=== PATIENT | male | born 1935 | race Caucasian/White ===

== ENCOUNTER 2020-04-27 18:22 | Inpatient (IN) | payer MEDICARE, MEDICAID, SELFPAY ==
[2020-04-27] VITALS (10 sets, daily range): BP systolic 109–138; BP diastolic 60–88; PULSE 99–113; RESP 18–27; TEMP 37.7; O2SAT 100–102; BMI 38.0
--- NOTE | 2020-04-27 18:49 | CTR_ITS ---
PROCEDURE INFORMATION: Exam: CT Head Without Contrast Exam date and time: 04/27/2020 7:31 PM Age: 84 years old Clinical indication: Altered mental status/memory loss; Confusion or disorientation; Patient HX: Weakness and confusion; Additional info: AMS TECHNIQUE: Imaging protocol: Computed tomography of the head without contrast. Radiation optimization: All CT scans at this facility use at least one of these dose optimization techniques: automated exposure control; mA and/or kV adjustment per patient size (includes targeted exams where dose is matched to clinical indication); or iterative reconstruction. COMPARISON: CT head wo con* [id number] 05/04/2019 1:50 PM RADIATION DOSE METRICS: Total DLP (mGy-cm): 728.13 FINDINGS: Brain: Moderate diffuse white matter disease likely reflecting chronic microvascular ischemic changes. Bilateral punctate benign basal ganglia calcifications. Cerebral ventricles: No ventriculomegaly. Bones/joints: Unremarkable. No acute fracture. Paranasal sinuses: Paranasal sinus opacifications. Mastoid air cells: Visualized mastoid air cells are well aerated. Soft tissues: Unremarkable. CT/CT head wo con* [id number] IMPRESSION: Negative for intracranial hemorrhage or mass effect. Radiation Dose CTDIVOL = (mGy): DLP = 728.13 (mGy-cm)
--- NOTE | 2020-04-27 18:49 | XR_ITS ---
WS: [id number] XR chest 1V portable [id number] REASON FOR EXAM: sob FINDINGS: Moderately tortuous thoracic aorta. Normal heart size. Calcified granulomatous changes in both hemithoraces. No active pulmonary parenchymal or pleural dise ase is noted. Mild degenerative spondylosis in the mid and lower thoracic spine. XR/XR chest 1V portable [id number] IMPRESSION: No acute chest abnormality.
--- NOTE | 2020-04-27 18:51 | ECG_ITS ---
[facility] Test Date: 2020-04-27 Pat Name: Geoffrey Blakely Department: Room: Gender: Male Testing Tech: : 1935 Requested By: Lorenzo Max Order Number: [id number] Michelle MD: CECILIA ARCEO Measurements Intervals [place] Rate: 109 P: 0 GA: 220 QRS: 83 QRSD: 114 T: 12 QT: 300 QTc: 405 Interpretive Statements SINUS TACHYCARDIA WITH FIRST DEGREE AV BLOCK RIGHT BUNDLE BRANCH BLOCK [120+ ms QRS DURATION, UPRIGHT V1, 40+ ms S IN I/aVL/V4/V5/V6] No previous ECG available for comparison Electronically Signed On 04-28-2020 18:39:50 DIRECTOR INDEPENDENT by CECILIA ARCEO [id number]
[2020-04-27] MEDS: sodium chloride 0.9% 1,000 ML 999 ML IV (19:23)
[2020-04-27] MEDS: albuterol 8 gm MDI 4 PUFF INHALATION (19:58)
[2020-04-27 20:06] LABS: Basophils % 0.3 %; Eosinophils % 0.3 %; Hematocrit 42.6 % (42.0-52.0); Hemoglobin 13.9 g/dL (11.7-16.6); Lymphocytes # 2.1 10^3/uL (0.8-4.8); Lymphocytes % 18.2 %; Mean Corpuscular HGB Conc 32.6 g/dL (30.0-36.0); Mean Corpuscular Hemoglobin 30.5 pg (28.0-34.0); Mean Corpuscular Volume 93.6 fL (80-94); Mean Platelet Volume 11.6 fL (7.4-10.4); Monocytes # 1.2 10^3/uL (0.2-0.9); Monocytes % 10.4 %; Neutrophils # 8.15 10^3/uL (1.8-7.7); Neutrophils % 70.3 %; Nucleated Red Blood Cells % 0 %; Platelet Count 239 10^3/cmm (130-400); Red Blood Count 4.55 10^6/uL (4.1-5.3); Red Cell Distribution Width 12.3 % (12.1-15.1); White Blood Count 11.6 10^3/uL (4.0-10.0)
[2020-04-27 20:09] LABS: ABG PCO2 39.6 mmHg (35-45); ABG PH Result 7.44 (7.35-7.45); Arterial Blood Gas Hematocrit 41.3 % (42-52); Base Excess ABG 2.4 mmol/L (-2.0-2.0); Blood Gas Allen Test Pos; Blood Gas Sample Site Radial, right; Blood Gas Sample Type Arterial; Carboxyhemoglobin 0.8 %THgb (0.4-20.1); HCO3 ABG 26.7 mmol/L (22-26); Methemoglobin 0.8 % (0.4-1.5); Oxygen Device NC; PO2 ABG 85.1 mmHg (80.0-100.0); Total Hemoglobin 13.5 g/dL (14-18)
[2020-04-27 20:16] LABS: Lactic Sepsis W/Reflex 2.5 mmol/L (0.5-2.2)
[2020-04-27 20:31] LABS: Alanine Aminotransferase 29 U/L (0-41); Albumin Level 3.2 g/dL (3.5-5.2); Alkaline Phosphatase 49 IU/L (40-130); Anion Gap 18.8 (5-19); Aspartate Amino Transferase 85 U/L (0-40); Blood Urea Nitrogen 64 mg/dL (8-23); C Reactive Protein 190.4 mg/L (0.0-4.9); Calcium 8.1 mg/dL (8.5-10.5); Carbon Dioxide 29 mmol/L (22-29); Chloride 101 mmol/L (98-107); Globulin 3.9 g/dL (1.3-4.6); Glucose 158 mg/dL (65-115); NT Pro B Type Natriuretic Pept 814 pg/mL (0-450); Osmolality Calculated 320 mOsm/kg (285-295); Potassium 4.8 mmol/L (3.5-5.1); Sodium 144 mmol/L (136-145); Total Bilirubin 0.3 mg/dL (0.15-1.2); Total Protein 7.1 g/dL (6.6-8.7)
--- NOTE | 2020-04-27 20:51 | ECG_ITS ---
[facility] Test Date: 2020-04-27 Pat Name: Geoffrey Blakely Department: Room: Gender: Male Gravity Prospecting Supervisor: : 1935 Requested By: Lorenzo Max Order Number: [id number] Michelle MD: Isatu Galo M.D. Measurements Intervals [place] Rate: 109 P: -6 ID: [id number] QRS: 111 QRSD: 130 T: 23 QT: 351 QTc: 474 Interpretive Statements SINUS TACHYCARDIA WITH OCCASIONAL VENTRICULAR PREMATURE COMPLEXES RIGHT AXIS DEVIATION [QRS AXIS > 100] RIGHT BUNDLE BRANCH BLOCK [120+ ms QRS DURATION, UPRIGHT V1, 40+ ms S IN I/aVL/V4/V5/V6] Compared to ECG 04/27/2020 19:10:48 Ventricular premature complex(es) now present Right-axis deviation now present First degree AV block no longer present Electronically Signed On 04-30-2020 6:51:19 DINING SERVER by Isatu Galo M.D. [id number]
[2020-04-27 20:59] LABS: Glucose Urine UA Norm (Normal); Ketones Urine Negative (Negative); Protein Urine Trace (Negative); Specific Gravity, Urine 1.025 (1.005-1.030); Urine Appearance Hazy (CLEAR); Urine Color Yellow (Yellow); pH Urine 5 (5-7)
[2020-04-27 21:00] LABS: Add Urine Microscopic? YES; Bilirubin Urine Neg (Negative); Blood Urine Neg (Negative); Leukocyte Esterase Urine Negative (Negative); Nitrate Urine Negative (Negative); Urobilinogen Urine Norm (Negative)
[2020-04-27 21:05] LABS: Lactate Dehydrogenase 338 U/L (135-225)
[2020-04-27 21:09] LABS: SARS Covid-2 Antigen Positive (Negative)
[2020-04-27 21:09] LABS: Influenza A by IFA Negative (Negative); Influenza B by IFA Negative (Negative)
--- NOTE | 2020-04-27 21:16 | PC.NURSE ---
Amy handed directly to Molly from lab outside of pt room at 21:12
[2020-04-27 21:47] LABS: Bacteria Urine 1+ /hpf; Hyaline Casts Urine 25-40 /lpf; Mucus Urine 1+ /hpf; RBC Urine 0-4 /hpf (0-2); Squamous Epithelial Cell Urine 0-4 /hpf (0-5)
[2020-04-27 21:51] LABS: Reflex Lactate Order REFLEX LACTIC ORDERD
[2020-04-27 21:57] LABS: Troponin 5 2HR 59.32 ng/L (0-15)
[2020-04-27 22:12] LABS: Troponin(5th) Baseline 63 ng/L (0-15)
[2020-04-27 22:33] LABS: Troponin 5 2HR Delta -3.68 ABS# (0-10)
[2020-04-27] MEDS: acetaminophen 500 mg Tablet 1000 MG PO (22:44)
[2020-04-27 22:57] LABS: Lactic Acid level (Lactate) 1.6 mmol/L (0.5-2.2)
[2020-04-28] VITALS (84 sets, daily range): BP systolic 72–152; BP diastolic 40–88; PULSE 61–108; RESP 14–33; TEMP 36.2–37.8; O2SAT 87–99; BMI 31.9
--- NOTE | 2020-04-28 00:08 | P.HP_ITS ---
Providers/Chief Complaint Admitting Physician: Eriberto Aleman MD Primary Care Provider: ARMAAN Lam Chief Complaint: WEAKNESS; COUGH History of Present Illness Geoffrey Blakely is a 84 year old male with past medical history of hypertension, heart failure, was brought from home by the EMS with chief complaint of acute encephalopathy.History taking has been difficult as the patient is very hard of hearing.Patient is not able to communicate in an appropriate manner. We will h ave to reach out to the family in the morning to gather some more collateral information well as the baseline mentation of the patient. Upon arrival in the ER he was worked up for acute encephalopathy. CT head without contrast: No acute intracranial pathology X-ray chest: No infiltrate, or cardiomegaly, no pleural effusion. No pneumothorax ABG: pH 7.44, PCO2: 39, PO2: 85, on 2 L WBC: 69898, H&H:12.2/37, BUN/creatinine: 64/3 , lactic acid: 1.6, procalcitonin: 1.63 troponin: 63, 2-hour troponin: 59, delta: -3.68, 6-hour troponin: 47, delta 6- hour: -15.3 proBNP: 730, urinalysis: Clean Rapid Covid: Positive , influenza: Negative ECA course: Patient received 1 dose of remdesivir, 1 dose of Solu-Medrol 125 , he was started on dexamethasone 6 mg IV every 24 hours daily. Received 1 dose of Lovenox 110MG subacute . Upon arrival to the floor: Patient has become hypotensive: and was started on Levophed. Review of Systems Narrative: Could not be obtained. Medications/Allergies Home Medications Medication Instructions Recorded Confirmed Last Taken Type atorvastatin 10 mg PO BEDTIME 04/28/20 04/28/20 Unknown History cholecalciferol (vitamin D3) 50,000 unit PO DIRECTED 04/28/20 04/28/20 Unknown History lisinopril 20 mg PO DAILY 04/28/20 04/28/20 Unknown History primidone 50 mg PO BEDTIME 04/28/20 04/28/20 Unknown History torsemide 10 mg PO BID 04/28/20 04/28/20 Unknown History Allergies Allergy/AdvReac Type Severity Reaction Status Date / Time No Known Drug Allergies Allergy Unknown Verified 04/28/20 00:58 Vitals/I&O/Wt Last Vital Signs Temp 99.9 F H 04/27/20 22:00 Pulse 100 04/27/20 22:00 Resp 18 04/27/20 22:00 BP 119/63 04/27/20 22:00 Pulse Ox 100 04/27/20 22:00 04/27/20 04/27/20 04/28/20 14:59 22:59 06:59 Intake Total 1000 / 1000 Balance 1000 / 1000 Weight last 48 hrs Weight 113.398 kg Physical Exam HENMT: COMMON NORMALS: normocephalic HEAD & SCALP: normocephalic and atraumatic Eye: GENERAL EYE: appearance normal, both eyes and all related structures Chest: COMMONS NORMALS: normal inspection of the chest CHEST: Yes Symmetrical chest wall rise Resp: COMMON NORMALS: normal respiratory effort and clear to auscultation bilaterally EFFORT & INSPECTION: Yes symmetric chest movement AUSCULTATION: clear to auscultation bilaterally Cardio: COMMON NORMALS: regular rate, regular rhythm, S1 normal heart sound present, S2 normal heart sound present, No gallops present (Cardio), No murmurs present (Cardio), No rub (Cardio) and Peripheral pulses 2+ throughout RATE: regular rate RHYTHM: regular rhythm HEART SOUNDS: S1 normal heart sound present and S2 normal heart sound present PERIPHERAL PULSES: Peripheral pulses 2+ throughout GI: COMMON NORMALS: Normal to inspection, nondistended, normoactive bowel sounds present, Soft to palpation, non-tender, No hepatosplenomegaly present and no masses AUSCULTATION: Yes normoactive bowel sounds PALPATION: Yes Soft to palpation and Yes No hepatosplenomegaly present RECTAL EXAM: Yes deferred Extremity: COMMON NORMALS: no clubbing, cyanosis or edema and no pedal edema Data : 04/28/20 02:15 04/28/20 02:15 Micro: Microbiology 04/27/20 19:15 Blood Culture - Preliminary Blood SPECIMEN COLLECTED 04/27/20 19:32 Blood Culture - Preliminary Blood SPECIMEN COLLECTED A&P Assessment and plan (1) Sepsis: Sepsis secondary to Covid pneumonia Elevated pro-To: 1.63 Currently on Levophed Continue ceftriaxone and azithromycin for now Follow cultures Continue IV hydration Repeat chest x-ray Status: Acute (2) Acute encephalopathy: Acute encephalopathy possibly secondary to Covid 19 infection V/S Baseline mentation: unclear baseline We will continue with ceftriaxone and azithromycin Follow cultures We will gather more information from the family in the morning. Status: Acute (3) COVID-19 virus infection: Qualify for 1 dose of remdesivir 100 mg IV once Continue dexamethasone 6 mg IV daily Follow cytokinin Marleny markers Continue Lovenox mg subcu once daily Supplemental oxygen as needed Status: Acute (4) Acute kidney injury superimposed on CKD: WSELEY on CKD Came in with serum creatinine of 3.3 ( Baseline serum creatinine unknown ) Monitor BMP Avoid nephrotoxic Urine electrolytes Continue gentle IV hydration with normal saline at the rate of 75cc @hr Status: Acute (5) Hypertension: Currently Hypotensive. Monitor B/P for now Status: Acute (6) Heart failure: Currently compensated 2D ECHO when appropriate Status: Acute Additional A&P Information DVT prophylaxis: On Lovenox CODE STATUS: Full code Disposition:Will likely need placement.My guess is patient lives alone. Attestations Medical Necessity Statement*: Patient is to be in hospital for management of sepis, acute encephalopathy,WESLEY , Covid infection.Anticipated length of stay greater than 2 midnight Coding Level of Care Code Acute Applications Support Engineer for [facility] Fwd Exam Detailed Diagnoses Sepsis A41.9 Acute encephalopathy G93.40 COVID-19 virus infection U07.1 Acute kidney injury superimposed on CKD N17.9; N18.9 Hypertension I10 Heart failure I50.9
--- NOTE | 2020-04-28 01:25 | ED_ITS ---
HPI - Weakness General: Chief complaint: Weakness Stated complaint: WEAKNESS; COUGH Time Seen by Provider: 04/27/20 18:35 History of Present Illness: HPI Narrative: 84-year-old gentleman who is incredibly hard of hearing making the history difficult. He presents with generalized weakness, confusion, and possibly a fever. He is from home. He cannot give much history otherwise. MD Complaint: generalized weakness Onset (ago): day(s) Duration: progressively worsening Location: generalized Migration: none Severity: moderate Relieving factors: none Context: recent illness Associated symptoms: Reports chills and fever(s) Review of Systems General: Reports: ROS unobtainable due to medical condition and ROS unobtainable due to mental status Const: Reports: fever(s) and chills Physical Exam Const: GENERAL APPEARANCE: well developed ORIENTATION/CONSCIOUSNESS: Yes oriented to person; not oriented to place and not oriented to time HENMT: COMMON NORMALS: normocephalic, external ears normal and Normal external nose present HEAD & SCALP: normocephalic FACE & SINUS: normal facial exam NOSE: Normal external nose present and No nasal discharge present EXTERNAL EAR: Yes external ears normal Eye: COMMON NORMALS: Equal, round and reactive pupils present and conjunctivae normal EYELID: eyelids normal CONJUNCTIVA: Yes conjunctivae normal PUPIL: Yes Equal, round and reactive pupils present Neck/C-Spine: GENERAL: No tracheal deviation Chest: COMMONS NORMALS: normal inspection of the chest CHEST: No tenderness Resp: COMMON NORMALS: clear to auscultation bilaterally EFFORT & INSPECTION: No tachypneic, No respiratory distress, No retractions, No uses accessory muscles and No tracheal deviation AUSCULTATION: clear to auscultation bilaterally, no rhonchi, no wheezes and lung sounds not diminished Cardio: COMMON NORMALS: regular rhythm RATE: tachycardic RHYTHM: regular rhythm HEART SOUNDS: no murmurs PERIPHERAL PULSES: radial pulses present GI: INSPECTION: No abdominal distension AUSCULTATION: No Hyperactive bowel sounds present and No Hypoactive bowel sounds present PALPATION: No Guarding due to palpation present (GI) and No Rigid due to palpation PERCUSSION: no dullness to percussion and no tympanic to percussion Neuro: SENSORIUM/ORIENTATION: Yes oriented to person, No oriented to place and No oriented to time Skin: COMMON NORMALS: no rashes or lesions noted GENERAL SKIN EXAM: no rashes or lesions noted Course Vital Signs: Vital signs: Vital Signs Temperature 98.7 F 04/28/20 01:15 Pulse Rate 94 04/28/20 01:15 Respiratory Rate 16 04/28/20 01:15 Blood Pressure 132/75 04/28/20 01:15 Pulse Oximetry 94 04/28/20 01:13 MDM - Weakness MDM Narrative: Medical decision making narrative: 84-year-old male with generalized weakness, confusion, and a fever. He is Covid positive. His chest x-ray however is not terrible. He does have a significant elevation in his creatinine of 3.3 up from 1.5 on his last. His BUN is 64. He came from home, and obviously cannot function very well with this illness. He will come into the VICU for treatment of COVID-19. Lab Data: Labs: Lab Results 04/27/20 04/27/20 04/27/20 Range/Units 19:05 19:05 19:10 WBC (4.0-10.0) 10^3/ uL RBC (4.1-5.3) 10^6/u L Hgb (11.7-16.6) g/dL Hct (42.0-52.0) % MCV (80-94) fL MCH (28.0-34.0) pg MCHC (30.0-36.0) g/dL RDW (12.1-15.1) % Plt Count (130-400) 10^3/c mm MPV (7.4-10.4) fL Neut % (Auto) % Lymph % (Auto) % Woodruff % (Auto) % Eos % (Auto) % Baso % (Auto) % Neut # (Auto) (1.8-7.7) 10^3/u L Lymph # (Auto) (0.8-4.8) 10^3/u L Woodruff # (Auto) (0.2-0.9) 10^3/u L Eos # (Auto) (0.0-0.8) 10^3/u L Baso # (Auto) (0.0-0.1) 10^3/u L Nucleated RBC % (a uto) % Nucleated RBCs # /100WBC D-Dimer (0-0.59) ug/mIFE U Specimen Type Sample Site ABG pH (7.35-7.45) ABG pCO2 (35-45) mmHg ABG pO2 (80.0-100.0) mmH g ABG HCO3 (22-26) mmol/L ABG Base Excess (-2.0-2.0) mmol/ L Mina Test Hematocrit (42-52) % Hgb O2 Saturation (95-100) % Carboxyhemoglobin (0.4-20.1) %THgb Methemoglobin (0.4-1.5) % Total Hemoglobin (14-18) g/dL O2 Delivery Device FiO2 % Human Geography Faculty Member ID Sodium (136-145) mmol/L Potassium (3.5-5.1) mmol/L Chloride (98-107) mmol/L Carbon Dioxide (22-29) mmol/L Anion Gap (5-19) BUN (8-23) mg/dL Creatinine (0.7-1.2) mg/dL GFR Calculation Glucose (65-115) mg/dL Calculated Osmolal ity (285-295) mOsm/k g Lactic Acid (0.5-2.2) mmol/L Lactic Acid (Sepsi s) (0.5-2.2) mmol/L Calcium (8.5-10.5) mg/dL Total Bilirubin (0.15-1.2) mg/dL AST (0-40) U/L ALT (0-41) U/L Alkaline Phosphata se (40-130) IU/L Lactate Dehydrogen ase (135-225) U/L Troponin T Baselin e (0-15) ng/L Troponin T 120 Min [place] (0-15) ng/L Delta Troponin T (0-10) ABS# C-Reactive Protein (0.0-4.9) mg/L NT-Pro-B Natriuret Pep (0-450) pg/mL Total Protein (6.6-8.7) g/dL Albumin (3.5-5.2) g/dL Globulin (1.3-4.6) g/dL Urine Color Yellow (Yellow) Urine Appearance Hazy A (CLEAR) Urine pH 5 (5-7) Ur Specific Gravit y 1.025 (1.005-1.030) Urine Protein Trace (Negative) Urine Glucose (UA) Norm (Normal) Urine Ketones Negative (Negative) Urine Blood Neg (Negative) Urine Nitrate Negative (Negative) Urine Bilirubin Neg (Negative) Urine Urobilinogen Norm (Negative) mg/dL Ur Leukocyte Tammy ase Negative (Negative) Urine RBC 0-4 H (0-2) /hpf Urine WBC None (0-5) /hpf Ur Squamous Epith Cells 0-4 H (0-5) /hpf Amorphous Sediment Not Reportable Urine Bacteria 1+ H (NONE) /hpf Hyaline Casts 25-40 H /lpf Urine Mucus 1+ /hpf Influenza Type A A g Negative (Negative) Influenza Type B A g Negative (Negative) SARS-CoV-2 Ag (Rap id) Positive H (Negative) 04/27/20 04/27/20 04/27/20 Range/Units 19:15 19:15 19:15 WBC 11.6 H (4.0-10.0) 10^3/ uL RBC 4.55 (4.1-5.3) 10^6/u L Hgb 13.9 (11.7-16.6) g/dL Hct 42.6 (42.0-52.0) % MCV 93.6 (80-94) fL MCH 30.5 (28.0-34.0) pg MCHC 32.6 (30.0-36.0) g/dL RDW 12.3 (12.1-15.1) % Plt Count 239 (130-400) 10^3/c mm MPV 11.6 H (7.4-10.4) fL Neut % (Auto) 70.3 % Lymph % (Auto) 18.2 % Woodruff % (Auto) 10.4 % Eos % (Auto) 0.3 % Baso % (Auto) 0.3 % Neut # (Auto) 8.15 H (1.8-7.7) 10^3/u L Lymph # (Auto) 2.1 (0.8-4.8) 10^3/u L Woodruff # (Auto) 1.2 H (0.2-0.9) 10^3/u L Eos # (Auto) 0.0 (0.0-0.8) 10^3/u L Baso # (Auto) 0.0 (0.0-0.1) 10^3/u L Nucleated RBC % (a uto) 0 % Nucleated RBCs # 0.0 /100WBC D-Dimer 4.20 H (0-0.59) ug/mIFE U Specimen Type Sample Site ABG pH (7.35-7.45) ABG pCO2 (35-45) mmHg ABG pO2 (80.0-100.0) mmH g ABG HCO3 (22-26) mmol/L ABG Base Excess (-2.0-2.0) mmol/ L Mina Test Hematocrit (42-52) % Hgb O2 Saturation (95-100) % Carboxyhemoglobin (0.4-20.1) %THgb Methemoglobin (0.4-1.5) % Total Hemoglobin (14-18) g/dL O2 Delivery Device FiO2 % Human Geography Faculty Member ID Sodium 144 (136-145) mmol/L Potassium 4.8 (3.5-5.1) mmol/L Chloride 101 (98-107) mmol/L Carbon Dioxide 29 (22-29) mmol/L Anion Gap 18.8 (5-19) BUN 64 H (8-23) mg/dL Creatinine 3.3 H (0.7-1.2) mg/dL GFR Calculation Not Reportable Glucose 158 H (65-115) mg/dL Calculated Osmolal ity 320 H (285-295) mOsm/k g Lactic Acid (0.5-2.2) mmol/L Lactic Acid (Sepsi s) (0.5-2.2) mmol/L Calcium 8.1 L (8.5-10.5) mg/dL Total Bilirubin 0.3 (0.15-1.2) mg/dL AST 85 H (0-40) U/L ALT 29 (0-41) U/L Alkaline Phosphata se 49 (40-130) IU/L Lactate Dehydrogen ase 338 H (135-225) U/L Troponin T Baselin e (0-15) ng/L Troponin T 120 Min [place] (0-15) ng/L Delta Troponin T (0-10) ABS# C-Reactive Protein 190.4 H (0.0-4.9) mg/L NT-Pro-B Natriuret Pep 814 H (0-450) pg/mL Total Protein 7.1 (6.6-8.7) g/dL Albumin 3.2 L (3.5-5.2) g/dL Globulin 3.9 (1.3-4.6) g/dL Urine Color (Yellow) Urine Appearance (CLEAR) Urine pH (5-7) Ur Specific Gravit y (1.005-1.030) Urine Protein (Negative) Urine Glucose (UA) (Normal) Urine Ketones (Negative) Urine Blood (Negative) Urine Nitrate (Negative) Urine Bilirubin (Negative) Urine Urobilinogen (Negative) mg/dL Ur Leukocyte Tammy ase (Negative) Urine RBC (0-2) /hpf Urine WBC (0-5) /hpf Ur Squamous Epith Cells (0-5) /hpf Amorphous Sediment Urine Bacteria (NONE) /hpf Hyaline Casts /lpf Urine Mucus /hpf Influenza Type A A g (Negative) Influenza Type B A g (Negative) SARS-CoV-2 Ag (Rap id) (Negative) 04/27/20 04/27/20 04/27/20 Range/Units 19:15 19:15 19:45 WBC (4.0-10.0) 10^3/ uL RBC (4.1-5.3) 10^6/u L Hgb (11.7-16.6) g/dL Hct (42.0-52.0) % MCV (80-94) fL MCH (28.0-34.0) pg MCHC (30.0-36.0) g/dL RDW (12.1-15.1) % Plt Count (130-400) 10^3/c mm MPV (7.4-10.4) fL Neut % (Auto) % Lymph % (Auto) % Woodruff % (Auto) % Eos % (Auto) % Baso % (Auto) % Neut # (Auto) (1.8-7.7) 10^3/u L Lymph # (Auto) (0.8-4.8) 10^3/u L Woodruff # (Auto) (0.2-0.9) 10^3/u L Eos # (Auto) (0.0-0.8) 10^3/u L Baso # (Auto) (0.0-0.1) 10^3/u L Nucleated RBC % (a uto) % Nucleated RBCs # /100WBC D-Dimer (0-0.59) ug/mIFE U Specimen Type Arterial Sample Site Radial, right ABG pH 7.44 (7.35-7.45) ABG pCO2 39.6 (35-45) mmHg ABG pO2 85.1 (80.0-100.0) mmH g ABG HCO3 26.7 H (22-26) mmol/L ABG Base Excess 2.4 H (-2.0-2.0) mmol/ L Mina Test Pos Hematocrit 41.3 L (42-52) % Hgb O2 Saturation 97.0 (95-100) % Carboxyhemoglobin 0.8 (0.4-20.1) %THgb Methemoglobin 0.8 (0.4-1.5) % Total Hemoglobin 13.5 L (14-18) g/dL O2 Delivery Device Nc FiO2 2.0 % Human Geography Faculty Member ID [email or web address] Sodium (136-145) mmol/L Potassium (3.5-5.1) mmol/L Chloride (98-107) mmol/L Carbon Dioxide (22-29) mmol/L Anion Gap (5-19) BUN (8-23) mg/dL Creatinine (0.7-1.2) mg/dL GFR Calculation Glucose (65-115) mg/dL Calculated Osmolal ity (285-295) mOsm/k g Lactic Acid 2.5 H (0.5-2.2) mmol/L Lactic Acid (Sepsi s) (0.5-2.2) mmol/L Calcium (8.5-10.5) mg/dL Total Bilirubin (0.15-1.2) mg/dL AST (0-40) U/L ALT (0-41) U/L Alkaline Phosphata se (40-130) IU/L Lactate Dehydrogen ase (135-225) U/L Troponin T Baselin e 63 H (0-15) ng/L Troponin T 120 Min [place] (0-15) ng/L Delta Troponin T (0-10) ABS# C-Reactive Protein (0.0-4.9) mg/L NT-Pro-B Natriuret Pep (0-450) pg/mL Total Protein (6.6-8.7) g/dL Albumin (3.5-5.2) g/dL Globulin (1.3-4.6) g/dL Urine Color (Yellow) Urine Appearance (CLEAR) Urine pH (5-7) Ur Specific Gravit y (1.005-1.030) Urine Protein (Negative) Urine Glucose (UA) (Normal) Urine Ketones (Negative) Urine Blood (Negative) Urine Nitrate (Negative) Urine Bilirubin (Negative) Urine Urobilinogen (Negative) mg/dL Ur Leukocyte Tammy ase (Negative) Urine RBC (0-2) /hpf Urine WBC (0-5) /hpf Ur Squamous Epith Cells (0-5) /hpf Amorphous Sediment Urine Bacteria (NONE) /hpf Hyaline Casts /lpf Urine Mucus /hpf Influenza Type A A g (Negative) Influenza Type B A g (Negative) SARS-CoV-2 Ag (Rap id) (Negative) 04/27/20 04/27/20 Range/Units 21:00 22:00 WBC (4.0-10.0) 10^3/ uL RBC (4.1-5.3) 10^6/u L Hgb (11.7-16.6) g/dL Hct (42.0-52.0) % MCV (80-94) fL MCH (28.0-34.0) pg MCHC (30.0-36.0) g/dL RDW (12.1-15.1) % Plt Count (130-400) 10^3/c mm MPV (7.4-10.4) fL Neut % (Auto) % Lymph % (Auto) % Woodruff % (Auto) % Eos % (Auto) % Baso % (Auto) % Neut # (Auto) (1.8-7.7) 10^3/u L Lymph # (Auto) (0.8-4.8) 10^3/u L Woodruff # (Auto) (0.2-0.9) 10^3/u L Eos # (Auto) (0.0-0.8) 10^3/u L Baso # (Auto) (0.0-0.1) 10^3/u L Nucleated RBC % (a uto) % Nucleated RBCs # /100WBC D-Dimer (0-0.59) ug/mIFE U Specimen Type Sample Site ABG pH (7.35-7.45) ABG pCO2 (35-45) mmHg ABG pO2 (80.0-100.0) mmH g ABG HCO3 (22-26) mmol/L ABG Base Excess (-2.0-2.0) mmol/ L Mina Test Hematocrit (42-52) % Hgb O2 Saturation (95-100) % Carboxyhemoglobin (0.4-20.1) %THgb Methemoglobin (0.4-1.5) % Total Hemoglobin (14-18) g/dL O2 Delivery Device FiO2 % Human Geography Faculty Member ID Sodium (136-145) mmol/L Potassium (3.5-5.1) mmol/L Chloride (98-107) mmol/L Carbon Dioxide (22-29) mmol/L Anion Gap (5-19) BUN (8-23) mg/dL Creatinine (0.7-1.2) mg/dL GFR Calculation Glucose (65-115) mg/dL Calculated Osmolal ity (285-295) mOsm/k g Lactic Acid (0.5-2.2) mmol/L Lactic Acid (Sepsi s) 1.6 (0.5-2.2) mmol/L Calcium (8.5-10.5) mg/dL Total Bilirubin (0.15-1.2) mg/dL AST (0-40) U/L ALT (0-41) U/L Alkaline Phosphata se (40-130) IU/L Lactate Dehydrogen ase (135-225) U/L Troponin T Baselin e (0-15) ng/L Troponin T 120 Min [place] 59.32 H (0-15) ng/L Delta Troponin T -3.68 L (0-10) ABS# C-Reactive Protein (0.0-4.9) mg/L NT-Pro-B Natriuret Pep (0-450) pg/mL Total Protein (6.6-8.7) g/dL Albumin (3.5-5.2) g/dL Globulin (1.3-4.6) g/dL Urine Color (Yellow) Urine Appearance (CLEAR) Urine pH (5-7) Ur Specific Gravit y (1.005-1.030) Urine Protein (Negative) Urine Glucose (UA) (Normal) Urine Ketones (Negative) Urine Blood (Negative) Urine Nitrate (Negative) Urine Bilirubin (Negative) Urine Urobilinogen (Negative) mg/dL Ur Leukocyte Tammy ase (Negative) Urine RBC (0-2) /hpf Urine WBC (0-5) /hpf Ur Squamous Epith Cells (0-5) /hpf Amorphous Sediment Urine Bacteria (NONE) /hpf Hyaline Casts /lpf Urine Mucus /hpf Influenza Type A A g (Negative) Influenza Type B A g (Negative) SARS-CoV-2 Ag (Rap id) (Negative) Discharge Plan Discharge Patient Disposition: Admitted As Inpatient Admit Provider: Eriberto Aleman Clinical Impression: COVID-19, Weakness Condition: Stable Coding Level of Care Code ED Communications Controller for Chg Fwd Exam Comprehensive
[2020-04-28] MEDS: cefTRIAXone 1,000 MG in sodium chloride 0.9% (plus) 50 ML 100 MG IV (01:55)
[2020-04-28] MEDS: heparin 5,000 unit/mL INJ 1 mL 5000 UNIT SUBCUT (01:55)
[2020-04-28] MEDS: famotidine 20 mg/2 mL INJ IVP ×2 (01:57→11:12)
[2020-04-28] MEDS: azithromycin 500 MG in sodium chloride 0.9% 250 ML 250 MG IV (01:57)
[2020-04-28] MEDS: sodium chloride 0.9% 1,000 ML 75 ML IV ×2 (01:58→11:12)
[2020-04-28 02:28] LABS: Urine Creatinine 145 mg/dL (39-259); Urine Random Sodium 35 mmol/L
[2020-04-28 02:29] LABS: Urine Protein Random 29 mg/dL
[2020-04-28] MEDS: acetaminophen 325 mg Tablet 650 MG PO (02:45)
[2020-04-28] MEDS: cefTRIAXone 1,000 mg SDV 1000 MG (03:04)
[2020-04-28 03:31] LABS: Procalcitonin 1.63 ng/mL (0-0.5)
[2020-04-28 03:51] LABS: Basophils % 0.1 %; Hematocrit 37.2 % (42.0-52.0); Hemoglobin 12.2 g/dL (11.7-16.6); INR 1.26 (0.8-1.2); Lymphocytes # 0.8 10^3/uL (0.8-4.8); Lymphocytes % 7.5 %; Mean Corpuscular HGB Conc 32.8 g/dL (30.0-36.0); Mean Corpuscular Hemoglobin 30.7 pg (28.0-34.0); Mean Corpuscular Volume 93.5 fL (80-94); Mean Platelet Volume 11.8 fL (7.4-10.4); Monocytes # 0.4 10^3/uL (0.2-0.9); Monocytes % 3.9 %; Neutrophils # 9.14 10^3/uL (1.8-7.7); Nucleated Red Blood Cells % 0 %; Platelet Count 217 10^3/cmm (130-400); Red Blood Count 3.98 10^6/uL (4.1-5.3); Red Cell Distribution Width 12.2 % (12.1-15.1); White Blood Count 10.4 10^3/uL (4.0-10.0)
[2020-04-28 03:58] LABS: Alanine Aminotransferase 30 U/L (0-41); Albumin Level 2.8 g/dL (3.5-5.2); Alkaline Phosphatase 44 IU/L (40-130); Aspartate Amino Transferase 77 U/L (0-40); Blood Urea Nitrogen 64 mg/dL (8-23); Calcium 7.4 mg/dL (8.5-10.5); Carbon Dioxide 22 mmol/L (22-29); Chloride 103 mmol/L (98-107); Globulin 3.5 g/dL (1.3-4.6); Glucose 321 mg/dL (65-115); Magnesium 2.3 mg/dL (1.7-2.3); Osmolality Calculated 323 mOsm/kg (285-295); Sodium 141 mmol/L (136-145); Total Bilirubin 0.2 mg/dL (0.15-1.2); Total Protein 6.3 g/dL (6.6-8.7)
[2020-04-28 03:59] LABS: Troponin 5 6HR 47.27 ng/L (0-15)
[2020-04-28 04:02] LABS: NT Pro B Type Natriuretic Pept 730 pg/mL (0-450)
[2020-04-28 04:13] LABS: Troponin 5 6HR Delta -15.73 ng/L (0-12)
[2020-04-28] MEDS: enoxaparin 100 mg/mL Syringe 110 MG SUBCUT (05:00)
[2020-04-28] MEDS: dexamethasone 4 mg/mL INJ 6 MG IVP (05:03)
--- NOTE | 2020-04-28 06:15 | USCV_ITS ---
Geoffrey Blakely Age: 84 Gender: M : 1935 Exam Date: 04/28/2020 12:37 Ordering Phys: Eriberto Aleman MD Technologist: Willian Kitchen [place] [facility] [place]: [place] HISTORY: DVT. PROCEDURES: Venous duplex imaging was performed in bilateral lower extremities. The following venous structures were evaluated: common femoral vein, profunda vein, proximal portion of the greater saphenous vein, superficial femoral vein, and the popliteal vein. In addition, the posterior tibial and peroneal trunk were evaluated. Serial compression, augmentation maneuvers, and spectral Doppler flow evaluation were performed. FINDINGS: Normal 2-D Doppler and augmentation and compressibility throughout the lower extremity venous structures. Additional imaging through the proximal calf veins also reveals no thrombus. Limited evaluation of the greater saphenous vein is patent with no thrombus. CONCLUSIONS No DVT bilateral lower extremities. Dr. Alfreda Bishop DO (Electronically Signed) Final Date: 28 April 2020 13:05 S
[2020-04-28 06:44] LABS: Glucose Point of Care 293 mg/dL (70-110)
[2020-04-28 08:40] LABS: Glucose Point of Care 300 mg/dL (70-110)
[2020-04-28] MEDS: albuterol 8 gm MDI 1 PUFF INHALATION (09:03)
[2020-04-28 11:04] LABS: Glucose Point of Care 333 mg/dL (70-110)
--- NOTE | 2020-04-28 16:07 | PM.PN ---
Subjective Subjective: Interval history: He is extremely hard of hearing, and in fact sometimes answers questions, and answers appear to be initially appropriate, but on additional follow-up questions answers the same answer, and so verbal communication is extremely limited. Even writing on a clipboard, any longer statements or sentences are difficult for him to understand, he sometimes assumes the question based on 1-2 words giving answers to the incorrect assumed question. Intermittently if very simple statements written in question form is able to give answers which sound reasonable. Denies pain. No chest pain. Denies breathing discomfort. Feels all right. At home lives alone. . Reports uses a walker, although per his neighbor he has not been getting around almost at all. Nurse tells me it appears batteries are low for his hearing aids. When he is asked about the batteries says batteries are working fine, I don't need any batteries . Vitals/I&O/Wt Last Vital Signs Temp 98.4 F 04/28/20 12:00 Pulse 88 04/28/20 16:00 Resp 21 H 04/28/20 16:00 BP 101/69 04/28/20 16:00 Pulse Ox 91 04/28/20 16:00 04/28/20 04/28/20 04/28/20 06:59 14:59 22:59 Intake Total 1205.92 / 2205.92 933.833 / 933.833 Output Total 100 / 100 700 / 700 Balance 1105.92 / 2105.92 233.833 / 233.833 Weight last 48 hrs Weight 95.396 kg Weight 113.398 kg Physical Exam Const: COMMON NORMALS: no acute distress GENERAL APPEARANCE: cooperative ORIENTATION/CONSCIOUSNESS: Yes oriented to person and Yes oriented to time (year) OTHER: Extremely hard of hearing HENMT: COMMON NORMALS: oropharynx normal Neck/C-Spine: COMMON NORMALS: no JVD Resp: COMMON NORMALS: normal respiratory effort AUSCULTATION: crackles (Minimal ) Laterality: right (lower) Cardio: COMMON NORMALS: no JVD, regular rhythm, S1 normal heart sound present, S2 normal heart sound present and No murmurs present (Cardio) RHYTHM: regular rhythm HEART SOUNDS: S1 normal heart sound present and S2 normal heart sound present GI: COMMON NORMALS: Normal to inspection, nondistended, normoactive bowel sounds present, Soft to palpation and non-tender PALPATION: Yes Soft to palpation Extremity: COMMON NORMALS: no joint enlargement and no pedal edema Neuro: COMMON NORMALS: moves all extremities SENSORIUM/ORIENTATION: Yes oriented to person and Yes oriented to time (year) Urinary Catheter Management^: 2-way Urethral: Cath Placed During This Visit: yes Urinary Catheter Date of Insertion: 04/28/20 Urinary Catheter Time of Insertion: 11:30 Data : 04/28/20 02:15 04/28/20 02:15 Micro: Microbiology 04/27/20 19:15 Blood Culture - Preliminary Blood SPECIMEN COLLECTED 04/27/20 19:32 Blood Culture - Preliminary Blood SPECIMEN COLLECTED A&P Assessment and plan (1) Sepsis: Oxygenation appears stable. He is doing well on 2 L. Subjectively he says he feels well. Denies any chest pain or pressure. He is weaned off Levophed. Blood pressures are better. Sepsis secondary to Covid pneumonia Continue ceftriaxone and azithromycin empirically for possible bacterial superinfection. Continue gentle IV hydration Status: Acute (2) Acute encephalopathy: Acute encephalopathy possibly secondary to Covid 19 infection V/S Nontender clear baseline mentation. I will try and reach was never called but could not reach her by phone. I am told she has a power of trademark attorney of healthcare. It appears that patient's functional capacity has been recently significantly declining. He tells me that he used to walk with a walker, per report from the neighbor who recently even with a chairlift purchased for him by his neighbors, he has been mostly just sleeping in the chair. He is extremely hard of hearing. Very difficult to communicate with him, and so difficult also to assess his mental status currently. He does appear to answer some questions with insight, however, others not so much. He tells me his had in the past. He does not have any children. Continue treatment of sepsis at this time, acute kidney injury, COVID-19 infection, dehydration. Status: Acute (3) COVID-19 virus infection: Oxygenation is gradually improving. Continue dexamethasone 6 mg IV daily Continue Lovenox mg subcu once daily Supplemental oxygen as needed Will transfer to medical floor if we have beds. Lower extremity venous duplex negative. Status: Acute (4) Acute kidney injury superimposed on CKD: Minimal improvement. Dehydrated. Suspect prerenal failure. Also on lisinopril prior to admission. Continue gentle IV hydration. Encourage oral nutrition and hydration. Hold lisinopril. Urine outflow obstruction is possibility. Neri catheter was placed and even though he is incontinent at 750 mL coming out. Will obtain kidney and bladder US. Status: Acute (5) Hypertension: Monitor B/P for now Status: Acute (6) Heart failure: Currently compensated Status: Acute Additional A&P Information Sacral erythema and maceration: Moisture barrier. Keep dry. DVT prophylaxis: On Lovenox CODE STATUS: Full code Disposition: With functional decline, poor self care, decline in mobility would benefit from SNF. SS working w POA Attestations Medical Necessity Statement*: Continue admission for assessment of management of severe COVID-19 pneumonia, with acute kidney injury, dehydration, recent functional decline, disposition planning and arrangements. Coding Level of Care Code Acute Deputy Register Of Deeds for [facility] Fwd Exam Comprehensive Diagnoses Sepsis A41.9 Acute encephalopathy G93.40 COVID-19 virus infection U07.1 Acute kidney injury superimposed on CKD N17.9; N18.9 Hypertension I10 Heart failure I50.9
[2020-04-28 16:16] LABS: Glucose Point of Care 108 mg/dL (70-110)
[2020-04-28] MEDS: guaiFENesin-dextromethorphan UDC 10 mL PO (18:30)
[2020-04-28 20:06] LABS: Glucose Point of Care 131 mg/dL (70-110)
[2020-04-28] MEDS: albuterol 8 gm MDI 4 PUFF INHALATION (20:45)
[2020-04-28] MEDS: primidone 50 mg Tablet PO (20:57)
[2020-04-28] MEDS: atorvastatin 40 mg Tablet 20 MG PO (20:57)
[2020-04-29] VITALS (36 sets, daily range): BP systolic 97–146; BP diastolic 54–90; PULSE 71–104; RESP 13–30; TEMP 36.8–37.3; O2SAT 86–97
--- NOTE | 2020-04-29 | US_ITS ---
WS: [id number] RENAL ULTRASOUND REASON FOR EXAM: WESLEY TECHNIQUE: Grayscale and Doppler ultrasound examination of the kidneys. FINDINGS: Right kidney: Right kidney measures 11.5 cm x 5.1 cm x 5.5 cm. No calculus, hydronephrosis, or mass. Right renal cortex thickness 1.8 cm. Abundant sinus fibrolipomatosis. Left kidney: Left kidney measures 13.0 cm x 5.7 cm x 6.2 cm. Sonolucent mass with through transmissio n and acoustical enhancement in the upper portion of the right kidney. Mass measures 4.37 x 6.51 x 5. 24 cm. Left renal cortical thickness is 1.7 cm. Portions of the abdominal aorta that were visualized were normal. There is a Neri catheter within the bladder which is nondistended. US/US renal BI* [id number] IMPRESSION: Kidneys are normal in appearance except for a large left renal cyst as above.
[2020-04-29] MEDS: famotidine 20 mg/2 mL INJ IVP (00:03)
[2020-04-29] MEDS: cefTRIAXone 1,000 MG in sodium chloride 0.9% (plus) 50 ML 100 MG IV ×2 (00:03→23:35)
[2020-04-29] MEDS: azithromycin 500 MG in sodium chloride 0.9% 250 ML 250 MG IV (00:42)
[2020-04-29 03:13] LABS: Basophils % 0.1 %; Hematocrit 37.5 % (42.0-52.0); Hemoglobin 12.2 g/dL (11.7-16.6); Lymphocytes # 1.8 10^3/uL (0.8-4.8); Lymphocytes % 16.2 %; Mean Corpuscular HGB Conc 32.5 g/dL (30.0-36.0); Mean Corpuscular Volume 92.1 fL (80-94); Mean Platelet Volume 11.4 fL (7.4-10.4); Monocytes # 0.7 10^3/uL (0.2-0.9); Monocytes % 6.5 %; Neutrophils # 8.32 10^3/uL (1.8-7.7); Neutrophils % 76.5 %; Nucleated Red Blood Cells % 0 %; Platelet Count 244 10^3/cmm (130-400); Red Blood Count 4.07 10^6/uL (4.1-5.3); Red Cell Distribution Width 12.4 % (12.1-15.1); White Blood Count 10.9 10^3/uL (4.0-10.0)
[2020-04-29] MEDS: sodium chloride 0.9% 1,000 ML 75 ML IV (03:15)
[2020-04-29] MEDS: dexamethasone 4 mg/mL INJ 6 MG IVP (03:26)
[2020-04-29 03:29] LABS: D Dimer 2.44 ug/mIFEU (0-0.59)
[2020-04-29 03:37] LABS: Alanine Aminotransferase 26 U/L (0-41); Albumin Level 2.9 g/dL (3.5-5.2); Alkaline Phosphatase 40 IU/L (40-130); Anion Gap 16.7 (5-19); Aspartate Amino Transferase 58 U/L (0-40); Blood Urea Nitrogen 65 mg/dL (8-23); Calcium 6.9 mg/dL (8.5-10.5); Carbon Dioxide 24 mmol/L (22-29); Chloride 111 mmol/L (98-107); Globulin 2.8 g/dL (1.3-4.6); Glucose 151 mg/dL (65-115); Osmolality Calculated 326 mOsm/kg (285-295); Potassium 4.7 mmol/L (3.5-5.1); Sodium 147 mmol/L (136-145); Total Bilirubin 0.2 mg/dL (0.15-1.2); Total Protein 5.7 g/dL (6.6-8.7)
[2020-04-29 03:38] LABS: C Reactive Protein 139.1 mg/L (0.0-4.9)
[2020-04-29 06:44] LABS: Glucose Point of Care 137 mg/dL (70-110)
--- NOTE | 2020-04-29 06:44 | PC.NURSE ---
Pt remains 88-90% on 2L NC on his left side. change the 3L. NC.
--- NOTE | 2020-04-29 07:00 | US_ITS ---
WS: [id number] RENAL ULTRASOUND REASON FOR EXAM: WESLEY TECHNIQUE: Grayscale and Doppler ultrasound examination of the kidneys. FINDINGS: Right kidney: Right kidney measures 11.5 cm x 5.1 cm x 5.5 cm. No calculus, hydronephrosis, or mass. Right renal cortex thickness 1.8 cm. Abundant sinus fibrolipomatosis. Left kidney: Left kidney measures 13.0 cm x 5.7 cm x 6.2 cm. Sonolucent mass with through transmissio n and acoustical enhancement in the upper portion of the right kidney. Mass measures 4.37 x 6.51 x 5. 24 cm. Left renal cortical thickness is 1.7 cm. Portions of the abdominal aorta that were visualized were normal. There is a Neri catheter within the bladder which is nondistended.
--- NOTE | 2020-04-29 07:04 | PC.NURSE ---
Report to DASH Longo
[2020-04-29] MEDS: albuterol 8 gm MDI 4 PUFF INHALATION ×3 (09:20→20:07)
[2020-04-29] MEDS: fixodent 39 gm Tube 1 APPLIC DENTAL (11:40)
[2020-04-29 12:02] LABS: Glucose Point of Care 265 mg/dL (70-110)
--- NOTE | 2020-04-29 12:50 | PM.PN ---
Subjective Subjective: Interval history: Very hard of hearing. Reads short phrases in large font to answer questions. Sometimes catches some things when speaking loudly. Denies shortness of breath. Denies chest pain or pressure. Has been having hiccups. Apart from that no nausea or vomiting. No diarrhea. Noted to have some coarse intention tremors today. He does not appear to be bothered by it. Denies being cold. Unclear if this is chronic or new, but at least did not appear to be very noticeable yesterday. Vitals/I&O/Wt Last Vital Signs Temp 98.3 F 04/29/20 12:00 Pulse 93 04/29/20 12:46 Resp 20 H 04/29/20 12:45 BP 144/82 04/29/20 12:00 Pulse Ox 93 04/29/20 12:45 04/28/20 04/29/20 04/29/20 22:59 06:59 14:59 Intake Total 440 / 2208.541 8016 / 2773.833 450 / 450 Output Total 1000 / 1700 400 / 2100 400 / 400 Balance -560 / -572.108 8948 / 673.833 50 / 50 Weight last 48 hrs Weight 84.567 kg Weight 95.396 kg Weight 113.398 kg Physical Exam Const: COMMON NORMALS: no acute distress GENERAL APPEARANCE: cooperative and comfortable ORIENTATION/CONSCIOUSNESS: Yes oriented to place ([place]); not oriented to time OTHER: Extremely hard of hearing. Sitting up in chair. HENMT: COMMON NORMALS: oropharynx normal Neck/C-Spine: COMMON NORMALS: no JVD Resp: COMMON NORMALS: normal respiratory effort and clear to auscultation bilaterally AUSCULTATION: clear to auscultation bilaterally Cardio: COMMON NORMALS: no JVD, regular rhythm, S1 normal heart sound present, S2 normal heart sound present and No murmurs present (Cardio) RHYTHM: regular rhythm HEART SOUNDS: S1 normal heart sound present and S2 normal heart sound present GI: COMMON NORMALS: Normal to inspection, nondistended, normoactive bowel sounds present, Soft to palpation and non-tender PALPATION: Yes Soft to palpation Extremity: COMMON NORMALS: no joint enlargement and no pedal edema Neuro: COMMON NORMALS: moves all extremities SENSORIUM/ORIENTATION: No oriented to time Skin: LESIONS: other (Multiple lesions on sacrum) Urinary Catheter Management^: 2-way Urethral: Cath Placed During This Visit: yes Reason for Continuing Indwelling Catheter: Accurate Measurement of Urinary Output in Critically Ill Patients Urinary Catheter Date of Insertion: 04/28/20 Urinary Catheter Time of Insertion: 11:30 Data : 04/29/20 03:00 04/29/20 03:00 Micro: Microbiology 04/27/20 19:15 Blood Culture - Preliminary Blood Gram positive cocci 04/27/20 19:32 Blood Culture - Preliminary Blood NEGATIVE TO DATE A&P Assessment and plan (1) COVID-19 virus infection: Is oxygenation slightly worse, requiring 3 L of oxygen. Symptomatically he states is doing well, communication is very difficult due to him being very hard of hearing. Continue Decadron for severe COVID-19 infection. Continue therapeutic Lovenox. Follow-up D-dimer. Is also on empiric antibiotic with concern for possible superimposed bacterial infection. Procalcitonin was high. For now we will continue. Supplemental oxygen as needed Transfer to medical floor if we have beds, overflow in VICU. Lower extremity venous duplex negative. Status: Acute (2) Sepsis: Improving. HR a little better. Tachypnea better. Gram-positive cocci 1/4 bottles in blood culture. Possible contamination. Follow-up culture results. Check urine bacterial antigens. Sputum culture if poss. Doing well off Levophed. Blood pressures are better. Sepsis secondary to Covid pneumonia, possible superimposed bacterial pulmonary infection. Continue ceftriaxone and azithromycin. DC IVF Status: Acute (3) Acute encephalopathy: Acute encephalopathy possibly secondary to Covid 19 infection. Improved, however, currently oriented to self, being in [place], he is not sure of the building he is in, is not sure of the year. Pleasant, conversant, cooperative. Not clear baseline mentation. Could not reach his neighbor for an update by phone today. I am told she has a power of deputy attorney general of healthcare. It appears that patient's functional capacity has been recently significantly declining. He tells me that he used to walk with a walker, per report from the neighbor who recently even with a chairlift purchased for him by his neighbors, he has been mostly just sleeping in the chair. He is extremely hard of hearing. Very difficult to communicate with him, and so difficult also to assess his mental status. He does appear to answer some questions with insight, however, others not so much. He tells me his had in the past. He does not have any children. His neighbor is caring for him. Continue treatment of sepsis at this time, acute kidney injury, COVID-19 infection, dehydration. Case coordination working with patient's POA (neighbor) regarding placement for skilled rehabilitation. May benefit from neurology assessment after discharge. Status: Acute (4) Acute kidney injury superimposed on CKD: Some improvement. DC IVF. Encourage PO intake. Suspect prerenal failure with poor PO intake pre-admit. Also on lisinopril at home. Encourage oral nutrition and hydration. Hold lisinopril. Urine outflow obstruction is possibility. Neri catheter was placed and even though he is incontinent had 750 mL coming out. Unremarkable kidney and bladder US. Incidentally noted left renal cyst. Status: Acute (5) Hypertension: Monitor B/P for now Status: Acute (6) Heart failure: Currently compensated Status: Acute Additional A&P Information Sacral erythema and maceration: Moisture barrier. Keep dry. Reposition frequently. DVT prophylaxis: On Lovenox CODE STATUS: Full code Disposition: With functional decline, poor self care, decline in mobility would benefit from SNF. SS working w POA Attestations Medical Necessity Statement*: Continue admission for management of severe COVID-19, acute kidney injury, encephalopathy, functional decline. 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
[2020-04-29 17:08] LABS: Glucose Point of Care 291 mg/dL (70-110)
[2020-04-29] MEDS: famotidine 20 mg Tablet PO (17:23)
[2020-04-29 20:56] LABS: Glucose Point of Care 227 mg/dL (70-110)
[2020-04-29] MEDS: atorvastatin 40 mg Tablet 20 MG PO (21:00)
[2020-04-29] MEDS: primidone 50 mg Tablet PO (21:00)
[2020-04-29] MEDS: guaiFENesin-dextromethorphan UDC 10 mL PO (23:49)
[2020-04-30] VITALS (26 sets, daily range): BP systolic 104–168; BP diastolic 61–92; PULSE 70–110; RESP 16–27; TEMP 36.6–37.3; O2SAT 89–100
[2020-04-30] MEDS: azithromycin 500 MG in sodium chloride 0.9% 250 ML 250 MG IV (00:13)
[2020-04-30] MEDS: dexamethasone 4 mg/mL INJ 6 MG IVP (02:47)
[2020-04-30 03:48] LABS: Basophils % 0.1 %; Eosinophils % 0.1 %; Hematocrit 34.6 % (42.0-52.0); Hemoglobin 11.3 g/dL (11.7-16.6); Lymphocytes # 0.8 10^3/uL (0.8-4.8); Lymphocytes % 10.5 %; Mean Corpuscular HGB Conc 32.7 g/dL (30.0-36.0); Mean Corpuscular Hemoglobin 30.2 pg (28.0-34.0); Mean Corpuscular Volume 92.5 fL (80-94); Mean Platelet Volume 11.5 fL (7.4-10.4); Monocytes # 0.7 10^3/uL (0.2-0.9); Monocytes % 9.3 %; Neutrophils # 6.05 10^3/uL (1.8-7.7); Neutrophils % 79.2 %; Nucleated Red Blood Cells % 0 %; Platelet Count 244 10^3/cmm (130-400); Red Blood Count 3.74 10^6/uL (4.1-5.3); Red Cell Distribution Width 12.6 % (12.1-15.1); White Blood Count 7.6 10^3/uL (4.0-10.0)
[2020-04-30 04:08] LABS: D Dimer 2.02 ug/mIFEU (0-0.59)
[2020-04-30 04:14] LABS: Alanine Aminotransferase 23 U/L (0-41); Albumin Level 2.7 g/dL (3.5-5.2); Alkaline Phosphatase 39 IU/L (40-130); Blood Urea Nitrogen 53 mg/dL (8-23); Calcium 6.6 mg/dL (8.5-10.5); Carbon Dioxide 20 mmol/L (22-29); Chloride 109 mmol/L (98-107); Globulin 2.5 g/dL (1.3-4.6); Glucose 186 mg/dL (65-115); Osmolality Calculated 311 mOsm/kg (285-295); Sodium 141 mmol/L (136-145); Total Bilirubin 0.2 mg/dL (0.15-1.2); Total Protein 5.2 g/dL (6.6-8.7)
[2020-04-30 04:16] LABS: C Reactive Protein 57.9 mg/L (0.0-4.9)
[2020-04-30 04:17] LABS: Anion Gap 16.8 (5-19); Aspartate Amino Transferase 42 U/L (0-40); Potassium 4.8 mmol/L (3.5-5.1)
[2020-04-30 07:04] LABS: Glucose Point of Care 190 mg/dL (70-110)
[2020-04-30] MEDS: famotidine 20 mg Tablet PO (08:33)
[2020-04-30] MEDS: albuterol 8 gm MDI 4 PUFF INHALATION ×2 (09:02→20:32)
[2020-04-30 11:24] LABS: Glucose Point of Care 260 mg/dL (70-110)
--- NOTE | 2020-04-30 12:33 | P.PN_ITS ---
Subjective Subjective: Interval history: Patient denies shortness of breath or chest pain. Complains of heartburn and reports that at home he takes Maalox. Extremely hard of hearing. Does not appear to be in distress this morning. Continues to require 3 L by nasal cannula to saturate in mid 90s. Kidney function is improving. Vitals/I&O/Wt Last Vital Signs Temp 98.2 F 04/30/20 08:00 Pulse 89 04/30/20 09:05 Resp 16 04/30/20 09:03 BP 135/77 04/30/20 09:00 Pulse Ox 95 04/30/20 09:03 04/29/20 04/30/20 04/30/20 22:59 06:59 14:59 Intake Total 400 / 850 200 / 1050 360 / 360 Output Total 401 / 801 400 / 1201 Balance - -200 / -151 360 / 360 Weight last 48 hrs Weight 84.935 kg Weight 84.567 kg Physical Exam Const: COMMON NORMALS: no acute distress Resp: COMMON NORMALS: normal respiratory effort and clear to auscultation bilaterally AUSCULTATION: clear to auscultation bilaterally Cardio: COMMON NORMALS: regular rate, regular rhythm and S2 normal heart sound present RATE: regular rate RHYTHM: regular rhythm HEART SOUNDS: S2 normal heart sound present OTHER: No lower extremity edema GI: COMMON NORMALS: Normal to inspection, nondistended, normoactive bowel sounds present, Soft to palpation and non-tender PALPATION: Yes Soft to palpation Neuro: COMMON NORMALS: no focal motor deficits Urinary Catheter Management^: 2-way Urethral: Cath Placed During This Visit: yes Reason for Continuing Indwelling Catheter: Accurate Measurement of Urinary Output in Critically Ill Patients Urinary Catheter Date of Insertion: 04/28/20 Urinary Catheter Time of Insertion: 11:30 Data : 04/30/20 03:05 04/30/20 03:05 Micro: Microbiology 04/27/20 19:15 Blood Culture - Preliminary Blood Micrococcus and related genera 04/29/20 15:50 Bacterial Antigens - Final Urine,Clean Catch 04/29/20 15:50 Legionella Urinary Antigen - Final Urine Catheterized A&P Assessment and plan (1) COVID-19 virus infection: Is oxygenation slightly worse, requiring 3 L of oxygen. Symptomatically he states is doing well, communication is very difficult due to him being very hard of hearing. Continue Decadron for severe COVID-19 infection. Continue therapeutic Lovenox. Follow-up D-dimer. Is also on empiric antibiotic with concern for possible superimposed bacterial infection. Procalcitonin was high. For now we will continue. Supplemental oxygen as needed Transfer to medical floor if we have beds, overflow in VICU. Lower extremity venous duplex negative. Status: Acute (2) Sepsis: Resolved Status: Acute (3) Acute encephalopathy: Mentation appears to be at baseline. Patient is extremely hard of hearing. Status: Acute (4) Acute kidney injury superimposed on CKD: Some improvement. DC IVF. Encourage PO intake. Suspect prerenal failure with poor PO intake pre-admit. Also on lisinopril at home. Encourage oral nutrition and hydration. Hold lisinopril. Urine outflow obstruction is possibility. Neri catheter was placed and even though he is incontinent had 750 mL coming out. Unremarkable kidney and bladder US. Incidentally noted left renal cyst. Status: Acute (5) Hypertension: Monitor B/P for now Status: Acute (6) Heart failure: Currently compensated Status: Acute Additional A&P Information Sacral erythema and maceration: Moisture barrier. Keep dry. Reposition frequently. DVT prophylaxis: On Lovenox CODE STATUS: Full code Disposition: With functional decline, poor self care, decline in mobility would benefit from SNF. SS working w POA PLAN: Continue keeping Neri catheter. Patient will require outpatient urology follow-up. Continue with physical therapy. Patient may require placement for rehabilitation. Encouraged oral intake. Switch Pepcid to high-dose Protonix and add Tums as needed. Attestations Medical Necessity Statement*: Patient with COVID-19 infection and hypoxic r espite failure as well as acute kidney injury requires close inpatient monitoring and treatment until deemed safe for discharge. Time Spent in Patient Care: 16 - 35 minutes Coding Level of Care Code Acute Semiconductor Assembler for [facility] Diagnoses COVID-19 virus infection U07.1 Sepsis A41.9 Acute encephalopathy G93.40 Acute kidney injury superimposed on CKD N17.9; N18.9 Hypertension I10 Heart failure I50.9
--- NOTE | 2020-04-30 14:59 | PC.SOCIAL ---
Pg 2 IMM Explained to pt's neighbor, Sharon, Pg 2 IMM, via phone. No questions voiced. Signed, dated, & timed a copy to be scanned into chart.
[2020-04-30] MEDS: pantoprazole DR 40 mg Tablet PO (17:32)
[2020-04-30 22:03] LABS: Glucose Point of Care 123 mg/dL (70-110)
[2020-04-30] MEDS: atorvastatin 40 mg Tablet 20 MG PO (22:06)
[2020-04-30] MEDS: primidone 50 mg Tablet PO (22:06)
[2020-05-01] VITALS (9 sets, daily range): BP systolic 131–150; BP diastolic 78–81; PULSE 87–102; RESP 18–20; TEMP 37.1–37.4; O2SAT 95–100
[2020-05-01] MEDS: cefTRIAXone 1,000 MG in sodium chloride 0.9% (plus) 50 ML 100 MG IV (00:16)
[2020-05-01] MEDS: azithromycin 500 MG in sodium chloride 0.9% 250 ML 250 MG IV (00:17)
[2020-05-01] MEDS: dexamethasone 4 mg/mL INJ 6 MG IVP (03:09)
[2020-05-01 06:36] LABS: Glucose Point of Care 157 mg/dL (70-110)
[2020-05-01] MEDS: albuterol 8 gm MDI 4 PUFF INHALATION ×3 (08:29→22:22)
--- NOTE | 2020-05-01 08:29 | PC.NURSE ---
blood sugar 228
[2020-05-01 08:32] LABS: Glucose Point of Care 228 mg/dL (70-110)
[2020-05-01] MEDS: pantoprazole DR 40 mg Tablet PO ×2 (08:32→17:03)
--- NOTE | 2020-05-01 11:37 | P.PN_ITS ---
Subjective Subjective: Interval history: Patient denies shortness of breath or chest pain. Reports being weak and unable to even reposition himself in bed. Good urinary output. He is now saturating in the mid 90s on 2 L by nasal cannula. Patient is 1 out of 4 positive blood cultures highly suggestive of contamination. Vitals/I&O/Wt Last Vital Signs Temp 99.0 F 05/01/20 08:00 Pulse 94 05/01/20 08:29 Resp 18 05/01/20 08:29 BP 140/80 05/01/20 08:00 Pulse Ox 95 05/01/20 08:29 04/30/20 05/01/20 05/01/20 22:59 06:59 14:59 Intake Total 1210 / 2050 120 / 120 Output Total 900 / 900 425 / 1325 Balance 310 / 1150 -425 / 725 120 / 120 Weight last 48 hrs Weight 97.704 kg Weight 97.704 kg Weight 84.935 kg Physical Exam Const: COMMON NORMALS: no acute distress Resp: COMMON NORMALS: normal respiratory effort and clear to auscultation bilaterally AUSCULTATION: clear to auscultation bilaterally Cardio: COMMON NORMALS: regular rate, regular rhythm and S2 normal heart sound present RATE: regular rate RHYTHM: regular rhythm HEART SOUNDS: S2 normal heart sound present OTHER: No lower extremity edema GI: COMMON NORMALS: Normal to inspection, nondistended, normoactive bowel sounds present, Soft to palpation and non-tender PALPATION: Yes Soft to palpation Neuro: COMMON NORMALS: no focal motor deficits Urinary Catheter Management^: 2-way Urethral: Cath Placed During This Visit: yes Reason for Continuing Indwelling Catheter: Acute Urinary Retention or Obstruction Urinary Catheter Date of Insertion: 04/28/20 Urinary Catheter Time of Insertion: 11:30 Data : 04/30/20 03:05 04/30/20 03:05 Micro: Microbiology 04/27/20 19:15 Blood Culture - Preliminary Blood Micrococcus and related genera A&P Assessment and plan (1) COVID-19 virus infection: Is oxygenation slightly worse, requiring 3 L of oxygen. Symptomatically he states is doing well, communication is very difficult due to him being very hard of hearing. Continue Decadron for severe COVID-19 infection. Continue therapeutic Lovenox. Follow-up D-dimer. Is also on empiric antibiotic with concern for possible superimposed bacterial infection. Procalcitonin was high. For now we will continue. Supplemental oxygen as needed Transfer to medical floor if we have beds, overflow in VICU. Lower extremity venous duplex negative. Status: Acute (2) Sepsis: Resolved Status: Acute (3) Acute encephalopathy: Mentation appears to be at baseline. Patient is extremely hard of hearing. Status: Acute (4) Acute kidney injury superimposed on CKD: Some improvement. DC IVF. Encourage PO intake. Suspect prerenal failure with poor PO intake pre-admit. Also on lisinopril at home. Encourage oral nutrition and hydration. Hold lisinopril. Urine outflow obstruction is possibility. Neri catheter was placed and even though he is incontinent had 750 mL coming out. Unremarkable kidney and bladder US. Incidentally noted left renal cyst. Status: Acute (5) Hypertension: Monitor B/P for now Status: Acute (6) Heart failure: Currently compensated Status: Acute (7) Obesity (BMI 30.0-34.9): Status: Acute Additional A&P Information Sacral erythema and maceration: Moisture barrier. Keep dry. Reposition frequently. DVT prophylaxis: On Lovenox CODE STATUS: Full code Disposition: With functional decline, poor self care, decline in mobility would benefit from SNF. SS working w POA PLAN: Continue keeping Neri catheter. Patient will require outpatient urology follo w-up. Continue with physical therapy. Patient will require placement in nursing facility. Encouraged oral intake. Discontinue azithromycin and continue ceftriaxone. Repeat labs in a.m. Patient received 1 dose of therapeutic Lovenox on presentation therefore will start him on 30 mg for DVT prophylaxis. Attestations Medical Necessity Statement*: Patient with COVID-19 infection and generalized weakness requiring close inpatient monitoring and treatment until placement to nursing facility is arranged. Coding Level of Care Code Acute Senior Database Administrator for [facility] Fwd Diagnoses COVID-19 virus infection U07.1 Sepsis A41.9 Acute encephalopathy G93.40 Acute kidney injury superimposed on CKD N17.9; N18.9 Hypertension I10 Heart failure I50.9 Obesity (BMI 30.0-34.9) E66.9
[2020-05-01 11:50] LABS: Glucose Point of Care 245 mg/dL (70-110)
[2020-05-01] MEDS: enoxaparin 30 mg/0.3 mL Syringe SUBCUT (12:37)
--- NOTE | 2020-05-01 16:05 | PC.NURSE ---
Pt titrated down to 1L NC. Pt's sats 95% on 2L NC. Pt tolerated well.
[2020-05-01 16:54] LABS: Glucose Point of Care 139 mg/dL (70-110)
[2020-05-01 20:22] LABS: Glucose Point of Care 184 mg/dL (70-110)
--- NOTE | 2020-05-01 20:32 | PC.NURSE ---
pt refused 1999 turn in bed.
[2020-05-01] MEDS: primidone 50 mg Tablet PO (20:59)
[2020-05-01] MEDS: atorvastatin 40 mg Tablet 20 MG PO (20:59)
[2020-05-02] VITALS (7 sets, daily range): BP systolic 144–151; BP diastolic 66–90; PULSE 80–95; RESP 20–22; TEMP 37.2–37.9; O2SAT 94–96
[2020-05-02] MEDS: cefTRIAXone 1,000 MG in sodium chloride 0.9% (plus) 50 ML 100 MG IV (00:09)
[2020-05-02] MEDS: dexamethasone 4 mg/mL INJ 6 MG IVP (02:50)
[2020-05-02 05:18] LABS: Basophils % 0.2 %; Eosinophils % 0.2 %; Hematocrit 33.6 % (42.0-52.0); Hemoglobin 11.3 g/dL (11.7-16.6); Lymphocytes # 0.7 10^3/uL (0.8-4.8); Mean Corpuscular HGB Conc 33.6 g/dL (30.0-36.0); Mean Corpuscular Hemoglobin 29.8 pg (28.0-34.0); Mean Corpuscular Volume 88.7 fL (80-94); Mean Platelet Volume 11.2 fL (7.4-10.4); Monocytes # 0.6 10^3/uL (0.2-0.9); Monocytes % 5.8 %; Neutrophils # 8.66 10^3/uL (1.8-7.7); Neutrophils % 85.9 %; Nucleated Red Blood Cells % 0 %; Platelet Count 252 10^3/cmm (130-400); Red Blood Count 3.79 10^6/uL (4.1-5.3); Red Cell Distribution Width 12.4 % (12.1-15.1); White Blood Count 10.1 10^3/uL (4.0-10.0)
[2020-05-02 05:57] LABS: Alanine Aminotransferase 22 U/L (0-41); Albumin Level 2.6 g/dL (3.5-5.2); Alkaline Phosphatase 40 IU/L (40-130); Anion Gap 15.3 (5-19); Aspartate Amino Transferase 29 U/L (0-40); Blood Urea Nitrogen 34 mg/dL (8-23); Carbon Dioxide 20 mmol/L (22-29); Chloride 110 mmol/L (98-107); Globulin 3.1 g/dL (1.3-4.6); Glucose 174 mg/dL (65-115); Magnesium 2.1 mg/dL (1.7-2.3); Osmolality Calculated 304 mOsm/kg (285-295); Potassium 4.3 mmol/L (3.5-5.1); Sodium 141 mmol/L (136-145); Total Bilirubin 0.3 mg/dL (0.15-1.2); Total Protein 5.7 g/dL (6.6-8.7)
[2020-05-02 06:33] LABS: Glucose Point of Care 242 mg/dL (70-110)
[2020-05-02] MEDS: pantoprazole DR 40 mg Tablet PO (09:17)
--- NOTE | 2020-05-02 10:00 | PC.SOCIAL ---
IMM Updated Page 2 of IMM updated and given to patient. Initialed, dated, and timed and placed back in chart.
[2020-05-02 11:49] LABS: Glucose Point of Care 235 mg/dL (70-110)
[2020-05-02] MEDS: enoxaparin 30 mg/0.3 mL Syringe SUBCUT (12:42)
--- NOTE | 2020-05-02 12:58 | P.DS_ITS ---
Discharge Providers Date of Admission: 04/27/20 22:50 Date of Discharge: May 02, 2020 Attending Provider at Admission: Eriberto Aleman MD Attending Provider at Discharge: Jeronimo Epstein MD Primary Care Provider: ARMAAN Lam Diagnoses at Discharge Discharge Diagnosis (1) COVID-19 virus infection: Status: Acute (2) Sepsis: Status: Acute Permanent problem details: Resolved (3) Acute encephalopathy: Status: Acute Permanent problem details: Resolved (4) Acute kidney injury superimposed on CKD: Status: Acute (5) Hypertension: Status: Acute (6) Heart failure: Status: Acute Permanent problem details: felt unlikely (7) Obesity (BMI 30.0-34.9): Status: Acute Reason for Visit Reason for Visit: WEAKNESS; COUGH Hospital Course Hospital Course Patient presented with acute encephalopathy and diagnosed with COVID-19 infection. Initially he was thought to be in heart failure but clinically appeared dehydrated during my evaluation. He was given fluids and creatinine improved. He was noted to have urinary obstruction with more than 700 mL urine in return when Neri catheter was placed. Patient was started on Flomax and outpatient follow-up with urology requested. Patient is on torsemide but does have decreased oral intake overall therefore this will be discontinued along with lisinopril. Patient was treated with dexamethasone and ceftriaxone for possible underlying bacterial infection. I will continue patient on Omnicef for 5 more days. Patient's white blood cell count slightly increased which appears to be related to steroids. Clinically he appears to be much better. This morning patient denies shortness of breath or chest pain. He requires 2 L of oxygen by nasal cannula to saturate in the low 90s. Patient has severe hearing deficit and frequently appears to be incorrectly answering without completely hearing question. He can hear some voices frequencies much better than others and answers questions appropriately when he understands what is asked. Patient will be continued on oxygen to keep saturations in the low 90s. I will continue dexamethasone 4 5 more days and add Protonix for GI protection as patient was complaining of heartburn. I will discontinue diuretics. This may need to be revisited once patient's oral intake get back to normal. This morning patient denied any shortness of breath or chest pain. Physical Exam Const: COMMON NORMALS: no acute distress Resp: COMMON NORMALS: normal respiratory effort and clear to auscultation bilaterally AUSCULTATION: clear to auscultation bilaterally Cardio: COMMON NORMALS: regular rate, regular rhythm and S2 normal heart sound present RATE: regular rate RHYTHM: regular rhythm HEART SOUNDS: S2 normal heart sound present OTHER: No lower extremity edema GI: COMMON NORMALS: Normal to inspection, nondistended, normoactive bowel sounds present, Soft to palpation and non-tender PALPATION: Yes Soft to palpation Neuro: COMMON NORMALS: no focal motor deficits Urinary Catheter Management^: 2-way Urethral: Cath Placed During This Visit: yes Reason for Continuing Indwelling Catheter: Acute Urinary Retention or Obstruction Urinary Catheter Date of Insertion: 04/28/20 Urinary Catheter Time of Insertion: 11:30 Discharge Data Data Completed and Pending: Completed Studies During Hospitalization Category Date Time Status CT head wo con* 7 0450 Urgent Cat Scan 04/27/20 18:49 Completed XR chest 1V bailee ble [id number] Urgent Exams 04/27/20 18:49 [place] [id number] Routin e Ultrasound 04/28/20 06:15 Completed US renal BI* [id number] 0 Routine Ultrasound 04/29/20 Completed Pending at discharge Category Date Time Status Blood Culture Sta t Lab 04/27/20 19:32 Results Complete Blood Co unt w/Auto AM LABS Lab 05/03/20 04:00 Ordered Complete Blood Co unt w/Auto AM LABS Lab 05/04/20 04:00 Ordered Comprehensive Met abolic Panel AM LA BS Lab 05/03/20 04:00 Ordered Comprehensive Met abolic Panel AM LA BS Lab 05/04/20 04:00 Ordered Magnesium AM LABS Lab 05/03/20 04:00 Ordered Magnesium AM LABS Lab 05/04/20 04:00 Ordered Sputum Culture an d Gram Stain [facility] Lab 04/29/20 14:11 Uncollected Labs from last 24 hours 05/02/20 05/02/20 05/02/20 11:36 06:24 04:55 WBC RBC Hgb Hct MCV MCH MCHC RDW Plt Count MPV Neut % (Auto) Lymph % (Auto) [place] % (Auto) Eos % (Auto) Baso % (Auto) Neut # (Auto) Lymph # (Auto) [place] # (Auto) Eos # (Auto) Baso # (Auto) Nucleated RBC % (a uto) Nucleated RBCs # Sodium 141 Potassium 4.3 Chloride 110 H Carbon Dioxide 20 L Anion Gap 15.3 BUN 34 H Creatinine 1.4 H GFR Calculation Not Reportable Glucose 174 H POC Glucose 235 242 Calculated Osmolal ity 304 H Calcium 7.0 L Magnesium 2.1 Total Bilirubin 0.3 AST 29 ALT 22 Alkaline Phosphata se 40 Total Protein 5.7 L Albumin 2.6 L Globulin 3.1 05/02/20 05/01/20 05/01/20 04:55 20:12 16:35 WBC 10.1 H RBC 3.79 L Hgb 11.3 L Hct 33.6 L MCV 88.7 MCH 29.8 MCHC 33.6 RDW 12.4 Plt Count 252 MPV 11.2 H Neut % (Auto) 85.9 Lymph % (Auto) 7.0 [place] % (Auto) 5.8 Eos % (Auto) 0.2 Baso % (Auto) 0.2 Neut # (Auto) 8.66 H Lymph # (Auto) 0.7 L [place] # (Auto) 0.6 Eos # (Auto) 0.0 Baso # (Auto) 0.0 Nucleated RBC % (a uto) 0 Nucleated RBCs # 0.0 Sodium Potassium Chloride Carbon Dioxide Anion Gap BUN Creatinine GFR Calculation Glucose POC Glucose 184 139 Calculated Osmolal ity Calcium Magnesium Total Bilirubin AST ALT Alkaline Phosphata se Total Protein Albumin Globulin Vitals: Last Vital Signs Temp 99.2 F 05/02/20 12:00 Pulse 89 05/02/20 12:00 Resp 22 H 05/02/20 12:00 BP 149/90 05/02/20 12:00 Pulse Ox 96 05/02/20 12:00 Discharge Plan Discharge Patient Disposition: Xfer SNF Condition: Stable Prescriptions: New Flomax 0.4 mg capsule 0.4 mg PO DAILY Qty: 30 RF: 0 Ventolin HFA 90 mcg/actuation Hfa Aerosol Inhaler 4 puff inhalation Q4H.RESPIRATORY PRN (Reason: Shortness Of Breath) Qty: 30 RF: 0 Decadron 6 mg tablet 6 mg PO DAILY Qty: 5 RF: 0 cefdinir 300 mg capsule 300 mg PO DAILY 5 Days Qty: 5 RF: 0 Protonix 40 mg tablet,delayed release (DR/EC) 40 mg PO DAILY Qty: 30 RF: 0 Senna Plus 8.6-50 mg capsule 1 tab-cap PO DAILY Qty: 30 RF: 0 Miralax 17 gram/dose powder 17 g PO DAILY Qty: 238 RF: 0 Continued lisinopril 20 mg tablet 20 mg PO DAILY RF: 0 atorvastatin 10 mg tablet 10 mg PO BEDTIME RF: 0 primidone 50 mg tablet 50 mg PO BEDTIME RF: 0 cholecalciferol (vitamin D3) 1,250 mcg (50,000 unit) capsule 50,000 unit PO DIRECTED RF: 0 Discontinued torsemide 10 mg tablet 10 mg PO BID RF: 0 Discharge Orders: Discharge Order (Routine); Ordered 05/02/20 Ordered By: Jeronimo Epstein Referrals: Mandy Castro DPM [Primary Care Provider] - 4-7 days Pete Garcia MD [Physician] - 2 weeks Discharge Diet: Usual diet Discharge Activity: Increase activity as tolerated Activity Restrictions/Additional Instructions: Please call your doctor or present to emergency department if your condition worsens or you develop diarrhea, lightheadedness, fatigue or see blood in your stool or black stool. Please keep blood pressure and heart rate log 3 times daily to present to primary care physician next visit for medication adjustment. Please keep Neri catheter until you see urology. Patient to continue using oxygen at 2 L nasal cannula titrated for oxygen saturation 92%. Discharge Attestations Time Spent in Discharge Care*: greater than 30 min Quality Metrics Clinical Quality Measures During this hospital stay, did patient experience: None Coding Level of Care Code Acute School Speech Language Pathologist for Dami Fwd Diagnoses COVID-19 virus infection U07.1 Sepsis A41.9 Acute encephalopathy G93.40 Acute kidney injury superimposed on CKD N17.9; N18.9 Hypertension I10 Heart failure I50.9 Obesity (BMI 30.0-34.9) E66.9
== END 2020-05-02 16:01 | disposition skilled nursing facility (03) | DRG 871 ==
LOC: ER 19:56 → ICU 23:58 → MEDSURG 04-30 23:10
PROVIDERS: Internal Medicine; Admitting Provider Internal Medicine; Emergency Provider Emergency Medicine; PCP Nurse Practitioner; Visit Provider Internal Medicine
DX: A41.9 Sepsis, unspecified organism (principal); U07.1 COVID-19; J12.89 Other viral pneumonia; J15.9 Unspecified bacterial pneumonia; G93.40 Encephalopathy, unspecified; N17.9 Acute kidney failure, unspecified; Q61.01 Congenital single renal cyst; I12.9 Hypertensive chronic kidney disease with stage 1 through stage 4 chronic kidney disease, or unspecified chronic kidney disease; N18.9 Chronic kidney disease, unspecified; I95.9 Hypotension, unspecified; Z86.718 Personal history of other venous thrombosis and embolism; H91.93 Unspecified hearing loss, bilateral; Z97.4 Presence of external hearing-aid; E86.0 Dehydration; L53.8 Other specified erythematous conditions; G25.2 Other specified forms of tremor; R32 Unspecified urinary incontinence; E66.9 Obesity, unspecified; Z68.33 Body mass index [BMI] 33.0-33.9, adult; N13.9 Obstructive and reflux uropathy, unspecified
CPT/HCPCS: 12345; 36415; 36416; 36600; 51702; 70450; 71045; 76770; 76857; 80053; 81001; 82570; 82805; 82962; 83605; 83615; 83735; 83880; 84145; 84156; 84300; 84484; 85025; 85378; 85610; 85730; 86140; 86403; 87040; 87205; 87426; 87449; 87804; 93005; 93970; 94640; 96372; 97110; 97116; 97163; 97167; 97530; 99283; J0456; J0696; J1100; J1644; J1650; J1815; J2930; J3490; J3535; J7030; J7050

== ENCOUNTER 2020-05-16 02:01 | Emergency (ER) | payer MEDICARE, MEDICAID, SELFPAY ==
[2020-05-16] VITALS (10 sets, daily range): BP systolic 72–115; BP diastolic 41–73; PULSE 98–116; RESP 23–40; TEMP 36.4–37.8; O2SAT 94–96; BMI 30.7
--- NOTE | 2020-05-16 02:07 | XRR_ITS ---
PROCEDURE INFORMATION: Exam: XR Chest, 1 View Exam date and time: 05/16/2020 2:14 AM Age: 84 years old Clinical indication: Shortness of breath; Additional info: SOB TECHNIQUE: Imaging protocol: XR of the chest Views: 1 view. COMPARISON: CR XR chest 1V portable [id number] 04/27/2020 7:40 PM FINDINGS: Lungs: Bilateral patchy ground-glass opacities are present within the mid lower hemithoraces, findings compatible with a bilateral patchy interstitial pneumonia. These findings are new compared with 04/27/2020. Pleural space: Unremarkable. No pleural effusion. No pneumothorax. Heart/Mediastinum: Unremarkable. No cardiomegaly. Bones/joints: Unremarkable. XR/XR chest 1V portable [id number] IMPRESSION: Patchy bilateral predominant peripheral interstitial opacities, findings suggesting a bilateral interstitial pneumonia.
--- NOTE | 2020-05-16 02:08 | ECG_ITS ---
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 Measurements Intervals [place] Rate: 112 P: 58 [place]: 213 QRS: 83 QRSD: 132 T: -30 QT: 308 QTc: 421 Interpretive Statements SINUS TACHYCARDIA WITH FIRST DEGREE AV BLOCK INTRAVENTRICULAR CONDUCTION DELAY [130+ ms QRS DURATION] Compared to ECG 04/27/2020 20:52:35 First degree AV block now present Intraventricular conduction delay now present Ventricular premature complex(es) no longer present Right-axis deviation no longer present Right bundle-branch block no longer present Electronically Signed On 05-16-2020 17:52:54 CREDIT UNDERWRITER by Aaron Lam M.D. [id number]
[2020-05-16] MEDS: sodium chloride 0.9% 1,000 ML 999 ML IV ×2 (02:12→03:00)
--- NOTE | 2020-05-16 02:13 | W.ED.SOB ---
HPI - SOB/Dyspnea General: Chief Complaint: Shortness of Breath/Dyspnea Stated Complaint: covid +/ ams/ resp distress Time Seen by Provider: 05/16/20 02:05 Source: patient and EMS Mode of arrival: EMS Limitations: no limitations History of Present Illness: HPI Narrative: 84-year-old male is here from local [facility] with respiratory distress along with fever and hypotension. Patient had Covid that was diagnosed on April 27. He states he has had increased cough there and is now requiring 6 L of oxygen. Patient's blood pressure is in the 70s as well. He is in respiratory distress here is able to speak in 2-4 word sentences. Patient is able to tell me his name. He denies any chest pain. Associated symptoms: Reports fever(s); Deny abdominal pain, chest pain, nausea or vomiting Review of Systems Const: Reports: fever(s) Eyes: Denies: blurry vision or eye discomfort ENMT: Denies: throat pain or dental pain Card: Denies: chest pain Resp: Reports: dyspnea and non-productive cough GI: Denies: abdominal pain, nausea, vomiting or diarrhea : Denies: dysuria Musc: Denies: neck pain or back pain Skin/Breast: Denies: rash Neuro: Denies: headache(s) Psych: Denies: depression [place]/Lymph: Denies: easy bruising All/Imm: Denies: urticaria Physical Exam Const: COMMON NORMALS: patient oriented x3 GENERAL APPEARANCE: in distress and frail appearing HENMT: COMMON NORMALS: normocephalic and atraumatic HEAD & SCALP: normocephalic and atraumatic Eye: COMMON NORMALS: Equal, round and reactive pupils present and EOMs intact bilaterally PUPIL: Yes Equal, round and reactive pupils present Neck/C-Spine: COMMON NORMALS: full ROM and supple Chest: COMMONS NORMALS: normal inspection of the chest and normal palpation of entire chest wall Resp: EFFORT & INSPECTION: No able to speak in complete sentences, Yes tachypneic and Yes respiratory distress AUSCULTATION: rales Cardio: COMMON NORMALS: regular rate, regular rhythm and No murmurs present (Cardio) RATE: regular rate RHYTHM: regular rhythm GI: COMMON NORMALS: Normal to inspection, nondistended, normoactive bowel sounds present, Soft to palpation, non-tender and no masses PALPATION: Yes Soft to palpation Extremity: COMMON NORMALS: normal to inspection and full ROM Neuro: COMMON NORMALS: patient oriented x3, moves all extremities and no focal motor deficits Psych: COMMON NORMALS: mental status grossly normal, Normal thought process present and cooperative THOUGHT PROCESS: Normal thought process present Skin: COMMON NORMALS: no rashes or lesions noted and no wounds GENERAL SKIN EXAM: no rashes or lesions noted Course Vital Signs: Vital signs: Vital Signs Temperature 100.1 F H 05/16/20 02:13 Pulse Rate 98 05/16/20 03:40 Respiratory Rate 30 H 05/16/20 03:40 Blood Pressure 87/41 05/16/20 03:40 Pulse Oximetry 95 05/16/20 03:40 MDM - SOB/Dyspnea MDM Narrative: Medical decision making narrative: Patient presents here with severe pneumonia with septic shock. Patient given IV fluids with no change in his blood pressure. Patient's BNP is elevated so no more IV fluids were given. Patient's started on IV antibiotics along with Levophed. A central line was placed. I spoke to physician in [place] and will transfer there for higher level of care as we have no ICU bed availability. Patient's blood pressure is improving on Levophed and is stable for transfer Lab Data: Labs: Lab Results 05/16/20 05/16/20 05/16/20 Range/Units 02:05 02:05 02:05 WBC 14.3 H (4.0-10.0) 10^3/ uL RBC 3.80 L (4.1-5.3) 10^6/u L Hgb 11.3 L (11.7-16.6) g/dL Hct 33.8 L (42.0-52.0) % MCV 88.9 (80-94) fL MCH 29.7 (28.0-34.0) pg MCHC 33.4 (30.0-36.0) g/dL RDW 13.5 (12.1-15.1) % Plt Count 251 (130-400) 10^3/c mm MPV 11.2 H (7.4-10.4) fL Neut % (Auto) 81.3 % Lymph % (Auto) 10.8 % [place] % (Auto) 5.7 % Eos % (Auto) 0.6 % Baso % (Auto) 0.8 % Neut # (Auto) 11.62 H (1.8-7.7) 10^3/u L Lymph # (Auto) 1.5 (0.8-4.8) 10^3/u L [place] # (Auto) 0.8 (0.2-0.9) 10^3/u L Eos # (Auto) 0.1 (0.0-0.8) 10^3/u L Baso # (Auto) 0.1 (0.0-0.1) 10^3/u L Nucleated RBC % (a uto) 0 % Nucleated RBCs # 0.0 /100WBC Specimen Type Sample Site ABG pH (7.35-7.45) ABG pCO2 (35-45) mmHg ABG pO2 (80.0-100.0) mmH g ABG HCO3 (22-26) mmol/L ABG Base Excess (-2.0-2.0) mmol/ L Mina Test Hematocrit (42-52) % O2 Delivery Device O2 Liters/Min % FiO2 % Senior Hydrogeologist ID Sodium 138 (136-145) mmol/L Potassium 5.3 H (3.5-5.1) mmol/L Chloride 107 (98-107) mmol/L Carbon Dioxide 16 L (22-29) mmol/L Anion Gap 20.3 H (5-19) BUN 36 H (8-23) mg/dL Creatinine 2.4 H (0.7-1.2) mg/dL GFR Calculation Not Reportable Glucose 144 H (65-115) mg/dL POC Glucose (70-110) mg/dL Calculated Osmolal ity 297 H (285-295) mOsm/k g Lactic Acid (0.5-2.2) mmol/L Calcium 8.4 L (8.5-10.5) mg/dL Total Bilirubin 0.4 (0.15-1.2) mg/dL AST 36 (0-40) U/L ALT 12 (0-41) U/L Alkaline Phosphata se 157 H (40-130) IU/L Troponin T Baselin e (0-15) ng/L NT-Pro-B Natriuret Pep 48679 H (0-450) pg/mL Total Protein 7.2 (6.6-8.7) g/dL Albumin 2.6 L (3.5-5.2) g/dL Globulin 4.6 (1.3-4.6) g/dL 05/16/20 05/16/20 05/16/20 Range/Units 02:05 02:06 02:09 WBC (4.0-10.0) 10^3/ uL RBC (4.1-5.3) 10^6/u L Hgb (11.7-16.6) g/dL Hct (42.0-52.0) % MCV (80-94) fL MCH (28.0-34.0) pg MCHC (30.0-36.0) g/dL RDW (12.1-15.1) % Plt Count (130-400) 10^3/c mm MPV (7.4-10.4) fL Neut % (Auto) % Lymph % (Auto) % [place] % (Auto) % Eos % (Auto) % Baso % (Auto) % Neut # (Auto) (1.8-7.7) 10^3/u L Lymph # (Auto) (0.8-4.8) 10^3/u L [place] # (Auto) (0.2-0.9) 10^3/u L Eos # (Auto) (0.0-0.8) 10^3/u L Baso # (Auto) (0.0-0.1) 10^3/u L Nucleated RBC % (a uto) % Nucleated RBCs # /100WBC Specimen Type Arterial Sample Site Radial, right ABG pH 7.40 (7.35-7.45) ABG pCO2 25.5 L (35-45) mmHg ABG pO2 59.8 L (80.0-100.0) mmH g ABG HCO3 15.6 L (22-26) mmol/L ABG Base Excess -7.8 L (-2.0-2.0) mmol/ L Mina Test Pos Hematocrit 34.3 L (42-52) % O2 Delivery Device Nc O2 Liters/Min 6.0 % FiO2 44.0 % Senior Hydrogeologist ID glc Sodium (136-145) mmol/L Potassium (3.5-5.1) mmol/L Chloride (98-107) mmol/L Carbon Dioxide (22-29) mmol/L Anion Gap (5-19) BUN (8-23) mg/dL Creatinine (0.7-1.2) mg/dL GFR Calculation Glucose (65-115) mg/dL POC Glucose 157 H (70-110) mg/dL Calculated Osmolal ity (285-295) mOsm/k g Lactic Acid (0.5-2.2) mmol/L Calcium (8.5-10.5) mg/dL Total Bilirubin (0.15-1.2) mg/dL AST (0-40) U/L ALT (0-41) U/L Alkaline Phosphata se (40-130) IU/L Troponin T Baselin e 169 H* (0-15) ng/L NT-Pro-B Natriuret Pep (0-450) pg/mL Total Protein (6.6-8.7) g/dL Albumin (3.5-5.2) g/dL Globulin (1.3-4.6) g/dL 12/25/20 Range/Units 02:16 WBC (4.0-10.0) 10^3/ uL RBC (4.1-5.3) 10^6/u L Hgb (11.7-16.6) g/dL Hct (42.0-52.0) % MCV (80-94) fL MCH (28.0-34.0) pg MCHC (30.0-36.0) g/dL RDW (12.1-15.1) % Plt Count (130-400) 10^3/c mm MPV (7.4-10.4) fL Neut % (Auto) % Lymph % (Auto) % [place] % (Auto) % Eos % (Auto) % Baso % (Auto) % Neut # (Auto) (1.8-7.7) 10^3/u L Lymph # (Auto) (0.8-4.8) 10^3/u L [place] # (Auto) (0.2-0.9) 10^3/u L Eos # (Auto) (0.0-0.8) 10^3/u L Baso # (Auto) (0.0-0.1) 10^3/u L Nucleated RBC % (a uto) % Nucleated RBCs # /100WBC Specimen Type Sample Site ABG pH (7.35-7.45) ABG pCO2 (35-45) mmHg ABG pO2 (80.0-100.0) mmH g ABG HCO3 (22-26) mmol/L ABG Base Excess (-2.0-2.0) mmol/ L Mina Test Hematocrit (42-52) % O2 Delivery Device O2 Liters/Min % FiO2 % Senior Hydrogeologist ID Sodium (136-145) mmol/L Potassium (3.5-5.1) mmol/L Chloride (98-107) mmol/L Carbon Dioxide (22-29) mmol/L Anion Gap (5-19) BUN (8-23) mg/dL Creatinine (0.7-1.2) mg/dL GFR Calculation Glucose (65-115) mg/dL POC Glucose (70-110) mg/dL Calculated Osmolal ity (285-295) mOsm/k g Lactic Acid 1.6 (0.5-2.2) mmol/L Calcium (8.5-10.5) mg/dL Total Bilirubin (0.15-1.2) mg/dL AST (0-40) U/L ALT (0-41) U/L Alkaline Phosphata se (40-130) IU/L Troponin T Baselin e (0-15) ng/L NT-Pro-B Natriuret Pep (0-450) pg/mL Total Protein (6.6-8.7) g/dL Albumin (3.5-5.2) g/dL Globulin (1.3-4.6) g/dL Imaging Data^: CXR: Radiologist's impression: [address] [address] XRay Report Signed Patient: Geoffrey Blakely Unit #: [id number] : 1935 Age/Sex: 84 / M ADM Date: 05/16/20 Loc: ER Room/Bed: Attending Dr: Ordering Provider/Ordering MD: Roseanna Norwood MD Date of Service: 05/16/20 Procedure(s): XR chest 1V portable [id number] Accession Number(s): [id number] Report Number: [id number] PROCEDURE INFORMATION: Exam: XR Chest, 1 View Exam date and time: 05/16/2020 2:14 AM Age: 84 years old Clinical indication: Shortness of breath; Additional info: SOB TECHNIQUE: Imaging protocol: XR of the chest Views: 1 view. COMPARISON: CR XR chest 1V portable [id number] 04/27/2020 7:40 PM FINDINGS: Lungs: Bilateral patchy ground-glass opacities are present within the mid lower hemithoraces, findings compatible with a bilateral patchy interstitial pneumonia. These findings are new compared with 04/27/2020. Pleural space: Unremarkable. No pleural effusion. No pneumothorax. Heart/Mediastinum: Unremarkable. No cardiomegaly. Bones/joints: Unremarkable. XR/XR chest 1V portable [id number] IMPRESSION: Patchy bilateral predominant peripheral interstitial opacities, findings suggesting a bilateral interstitial pneumonia. EKG Data^: EKG 1: Attestation: I personally reviewed and interpreted this EKG as follows: EKG Interpretation Date: 05/16/20 EKG interpretation time: 02:13 Interpretation: sinus tach hr [address] or t wave abnormalities qrs 132 qtc 374 Critical Care Time Critical Care Time: Critical Care Time: Yes Total Critical Care Time: 36 Attestation: This case had a high probability of a clinically significant, sudden, or life threatening deterioration of this patient's condition which required my full and direct attention, intervention and personal management. Discharge Plan Discharge Patient Disposition: Xfer Other Clinical Impression: Septic shock Pneumonia Qualifiers: Pneumonia type: due to unspecified organism Laterality: bilateral Lung location: unspecified part of lung Qualified Code(s): J18.9 - Pneumonia, unspecified organism Condition: Stable Referrals: Mandy Castro DPM [Primary Care Provider] - Coding Level of Care Code ED Soap Worker for Chg Fwd Exam Comprehensive
[2020-05-16 02:19] LABS: Basophils # 0.1 10^3/uL (0.0-0.1); Basophils % 0.8 %; Eosinophils # 0.1 10^3/uL (0.0-0.8); Eosinophils % 0.6 %; Hematocrit 33.8 % (42.0-52.0); Hemoglobin 11.3 g/dL (11.7-16.6); Lymphocytes # 1.5 10^3/uL (0.8-4.8); Lymphocytes % 10.8 %; Mean Corpuscular HGB Conc 33.4 g/dL (30.0-36.0); Mean Corpuscular Hemoglobin 29.7 pg (28.0-34.0); Mean Corpuscular Volume 88.9 fL (80-94); Mean Platelet Volume 11.2 fL (7.4-10.4); Monocytes # 0.8 10^3/uL (0.2-0.9); Monocytes % 5.7 %; Neutrophils # 11.62 10^3/uL (1.8-7.7); Neutrophils % 81.3 %; Nucleated Red Blood Cells % 0 %; Platelet Count 251 10^3/cmm (130-400); Red Cell Distribution Width 13.5 % (12.1-15.1); White Blood Count 14.3 10^3/uL (4.0-10.0)
[2020-05-16 02:20] LABS: Glucose Point of Care 157 mg/dL (70-110)
[2020-05-16 02:21] LABS: ABG PCO2 25.5 mmHg (35-45); Arterial Blood Gas Hematocrit 34.3 % (42-52); Base Excess ABG -7.8 mmol/L (-2.0-2.0); Blood Gas Allen Test Pos; Blood Gas Operator Identificat glc; Blood Gas Sample Site Radial, right; Blood Gas Sample Type Arterial; HCO3 ABG 15.6 mmol/L (22-26); Oxygen Device NC; PO2 ABG 59.8 mmHg (80.0-100.0)
[2020-05-16 02:35] LABS: Alanine Aminotransferase 12 U/L (0-41); Albumin Level 2.6 g/dL (3.5-5.2); Alkaline Phosphatase 157 IU/L (40-130); Aspartate Amino Transferase 36 U/L (0-40); Blood Urea Nitrogen 36 mg/dL (8-23); Calcium 8.4 mg/dL (8.5-10.5); Carbon Dioxide 16 mmol/L (22-29); Chloride 107 mmol/L (98-107); Globulin 4.6 g/dL (1.3-4.6); Glucose 144 mg/dL (65-115); Osmolality Calculated 297 mOsm/kg (285-295); Sodium 138 mmol/L (136-145); Total Bilirubin 0.4 mg/dL (0.15-1.2); Total Protein 7.2 g/dL (6.6-8.7)
[2020-05-16] MEDS: acetaminophen 650 mg Supp PR (02:38)
[2020-05-16] MEDS: piperacillin-tazobactam 3.375 GM in sodium chloride 0.9% (plus) 50 ML IV (02:38)
[2020-05-16 02:39] LABS: Anion Gap 20.3 (5-19); Potassium 5.3 mmol/L (3.5-5.1)
[2020-05-16 02:53] LABS: NT Pro B Type Natriuretic Pept 11783 pg/mL (0-450)
[2020-05-16 02:57] LABS: Lactic Sepsis W/Reflex 1.6 mmol/L (0.5-2.2)
[2020-05-16] MEDS: vancomycin 1,500 MG/300 ML PIGGYBACK 200 MG IV (03:00)
--- NOTE | 2020-05-16 03:32 | PC.NURSE ---
Patient's pre-hospital 16 Georgian goetz was discontinued per verbal order from Dr. Norwood.
[2020-05-16 04:16] LABS: Troponin(5th) Baseline 169 ng/L (0-15)
--- NOTE | 2020-05-16 04:27 | XRR_ITS ---
PROCEDURE INFORMATION: Exam: XR Chest, 1 View Exam date and time: 05/16/2020 4:37 AM Age: 84 years old Clinical indication: Device placement; Other: Central line; Additional info: Post central line TECHNIQUE: Imaging protocol: XR of the chest Views: 1 view. COMPARISON: CR XR chest 1V portable [id number] 05/16/2020 2:13 AM FINDINGS: Lungs: Unremarkable. No consolidation. Pleural space: Unremarkable. No pleural effusion. No pneumothorax. Heart/Mediastinum: Unremarkable. No cardiomegaly. Vasculature: A right internal jugular vein central venous line is placed with its tip at the level of the superior vena cava. Bones/joints: Unremarkable. Other findings: Patchy bilateral ground-glass opacities persist essentially unchanged from earlier today. XR/XR chest 1V portable [id number] IMPRESSION: 1. Right internal jugular vein central venous line placed with tip at the level of the superior vena cava. 2. Patchy bilateral predominant peripheral ground-glass opacities persist.
[2020-05-16 05:36] LABS: Troponin 5 2HR 131.3 ng/L (0-15); Troponin 5 2HR Delta -37.7 ABS# (0-10)
--- NOTE | 2020-05-16 05:56 | ECG_ITS ---
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 Measurements Intervals [place] Rate: 103 P: 39 SD: 244 QRS: 32 QRSD: 56 T: -60 QT: 168 QTc: 221 Interpretive Statements SINUS TACHYCARDIA WITH FIRST DEGREE AV BLOCK WITH OCCASIONAL SUPRAVENTRICULAR PREMATURE COMPLEXES LOW QRS VOLTAGE IN PRECORDIAL LEADS [QRS DEFLECTION < 1.0 mV IN CHEST LEADS] MODERATE ST DEPRESSION [0.05+ mV ST DEPRESSION] ABNORMAL QRS-T ANGLE [QRS-T AXIS DIFFERENCE > 60] Compared to ECG 05/16/2020 02:13:40 Low QRS voltage now present ST (T wave) deviation now present Intraventricular conduction delay no longer present Electronically Signed On 05-18-2020 11:11:54 FILTER ASSEMBLER by Aaron Lam M.D. [id number]
[2020-05-16 06:06] LABS: Add Urine Culture? No; Bacteria Urine 2+ /hpf; Bilirubin Urine 1+ (Negative); Blood Urine 2+ (Negative); Glucose Urine UA Norm (Normal); Ketones Urine 1+ (Negative); Leukocyte Esterase Urine 1+ (Negative); Nitrate Urine Negative (Negative); Protein Urine 1+ (Negative); RBC Urine 0-4 /hpf (0-2); Specific Gravity, Urine 1.025 (1.005-1.030); Squamous Epithelial Cell Urine 0-4 /hpf (0-5); Urine Appearance Cloudy (CLEAR); Urine Color Yellow (Yellow); Urobilinogen Urine Norm (Negative); pH Urine 5 (5-7)
--- NOTE | 2020-05-16 06:34 | PC.NURSE ---
pt arrived via EMS from [facility] SOB, febrile 100.4, hypotensive, lethargic, confused, decreased LOC. Dr. Norwood place a central line. Fluids, vancomycin, and Zosyn administered. Levophed drip running.
--- NOTE | 2020-05-16 06:47 | PC.NURSE ---
Received report , assumed care. No changes noted from report. Pt alert, responds appropriately. Offered water and gel for his lips. Norepinephrine drip infusing at 8mcg. IV site patent, clean and dry.
--- NOTE | 2020-05-16 08:08 | PC.NURSE ---
Continue to monitor while waiting for Flight crew
--- NOTE | 2020-05-16 08:09 | PC.NURSE ---
Flight crew here to take pt to [facility]
== END 2020-05-16 09:16 | disposition other institution (70) ==
PROVIDERS: Emergency Provider Emergency Medicine; PCP Nurse Practitioner
DX: J18.9 Pneumonia, unspecified organism (principal); A41.9 Sepsis, unspecified organism; R65.21 Severe sepsis with septic shock
CPT/HCPCS: 12345; 36416; 36600; 51702; 71045; 80053; 81001; 82803; 82962; 83605; 83880; 84484; 85025; 87040; 87077; 87086; 87186; 87205; 93005; 96365; 96366; 96367; 99283; 99291; 99292; J2543; J3370; J7030